=== PATIENT | female | born 1955 | race African-American/Black ===

== ENCOUNTER 2020-01-24 11:11 | Inpatient (IN) | payer OTHER ==
--- NOTE | 2020-01-24 13:53 | BHS.RME ---
Substance Use & Tx History - Substance Use History Alcohol Substance amount: 1.5 pints vodka Frequency of use: Daily Substance route: Oral Date of Last Use: 01/24/20 Opiates (Heroin) Substance amount: 2 bags heroin Frequency of use: Daily Substance route: Inhalation (ex: sniffing or snorting) Date of Last Use: 01/24/20 Physical/Psych/Mental Status - Behavior Eye Contact: Normal - Cooperativeness Cooperativeness: Cooperative - Thinking Thought Processes: Tight, Logical, Goal Directed Thought content: Future oriented - Physical Health Problems Is patient presently having any pain?: No Does patient presently have any injuries (include location): No Does patient currently have a fever: No Is patient : No CIWA Nausea/Vomitin-No Nausea/No Vomiting Muscle Tremors: 3 Anxiety: 3 (mild withdrawals because drank earlier today...) Agitation: 3 Paroxysmal Sweats: No Perspiration Orientation: 0-Oriented Tacttile Disturbances: 0-None Auditory Disturbances: 0-None Visual Disturbances: 0-None Headache: 4-Moderately Severe CIWA-Ar Total Score: 13
[2020-01-24 15:17] VITALS: BMI 15.6
--- NOTE | 2020-01-24 15:32 | HP ---
COWS - Scale Resting Pulse: 0= DC 80 or Below Sweatin=Flushed/Facial Moisture Restless Observation: 0= Sits Still Pupil Size: 0= Normal to Room Light Bone or Joint Aches: 1= Mild Discomfort Runny Nose/ Eye Tearin= Nasal Congestion GI Upset > 30mins: 0= None Tremor Observation: 2= Slight Tremor Visible Yawning Observation: 0= None Anxiety or Irritability: 2=Irritable/Anxious Goose Flesh Skin: 0=Smooth Skin COWS Score: 8 CIWA Score Nausea/Vomitin-No Nausea/No Vomiting Muscle Tremors: 3 Anxiety: 3 (mild withdrawals because drank earlier today...) Agitation: 3 Paroxysmal Sweats: No Perspiration Orientation: 0-Oriented Tacttile Disturbances: 0-None Auditory Disturbances: 0-None Visual Disturbances: 0-None Headache: 4-Moderately Severe CIWA-Ar Total Score: 13 - Admission Criteria OASAS Guidelines: Admission for Medically Managed Detox: Requires at least one of the followin. CIWA greater than 12 2. Seizures within the past 24 hours 3. Delirium tremens within the past 24 hours 4. Hallucinations within the past 24 hours 5. Acute intervention needed for co occurring medical disorder 6. Acute intervention needed for co occurring psychiatric disorder 7. Severe withdrawal that cannot be handled at a lower level of care (continued vomiting, continued diarrhea, abnormal vital signs) requiring intravenous medication and/or fluids 8. Admitting History and Physical - Admission Chief Complaint: Ms. Jamil is a 64 yo woman who presents to [facility] seeking detox admission for alcohol use disorder. She states she is "tired of being tired". History of Present Illness: Ms. Jamil is a 64 yo woman who presents to [facility] seeking detox admission for alcohol use disorder. She states she is "tired of being tired". She was here in November 2015 for detox/rehab. She went to [facility] for hypertensive emergency and then back to [facility] to complete rehab. She relapsed to drinking last week. She had been sober for 5 years prior to that time. PMH: HIV positive, HCV untreated Psur right leg Psych: depression on no meds, was on Lexapro in the past Substance use history Alcohol: 1.5 pints Vodka dialy, first use age 12y, last use 01/24/20. No hx of black outs or seizures. Heroin: 2 bags daily, IV, first use age 12, last use 3.3.20. OD 15 years ago. She is on a methadone maintenence program, last dose today 50 mg/Parul John. Nicotine: 4 cigs per day cocaine: $20/every 3 days, first use age 12y, last use yesterday SOC: lives in [place] criteria for admission: poor recovery environment, poor judgement, nicolasa risk for OD and relapse History Source: Patient Limitations to Obtaining History: No Limitations - Past Medical History Cardiovascular: Yes: HTN Gastrointestinal: Yes: Other (hep c) Renal/: Yes: UTI ...LMP: 11/23/00 ...: No Infectious Disease: Yes: HIV Psych: Yes: Addictions (polysubstance), Depression - Smoking History Smoking history: Current every day smoker Have you smoked in the past 12 months: Yes Aproximately how many cigarettes per day: 4 If you are a former smoker, when did you quit?: 2013 - Alcohol/Substance Use Hx Alcohol Use: Yes History of Substance Use: reports: Cocaine, Heroin - Social History ADL: Independent Occupation: unemployed History of Recent Travel: No Admission ROS [facility] - [facility] Allergies/Adverse Reactions: Allergies Allergy/AdvReac Type Severity Reaction Status Date / Time sulfamethoxazole Allergy Mild Itching Verified 01/24/20 15:03 [From Bactrim] trimethoprim [From Bactrim] Allergy Mild Itching Verified 01/24/20 15:03 Exam Limitations: No Limitations - Ebola screening Have you traveled outside of the country in the last 21 days: No Have you had contact with anyone from an Ebola affected area: No Have you been sick,other than usual withdrawal symptoms: No Do you have a fever: No - Review of Systems Constitutional: Unintentional Wgt. Loss (20 lbs loss past 6 mos) EENT: reports: Blurred Vision (glasses, needs to medicinal plant picker rx) Respiratory: reports: No Symptoms reported Cardiac: reports: No Symptoms Reported GI: reports: Nausea : reports: No Symptoms Reported Musculoskeletal: reports: Joint Pain Integumentary: reports: Dryness Neuro: reports: Headache Endocrine: reports: No Symptoms Reported Hematology: reports: No Symptoms Reported Psychiatric: reports: Anxious Patient History - Patient Medical History Hx Anemia: No Hx Asthma: No Hx Chronic Obstructive Pulmonary Disease (COPD): No Hx Cancer: No Hx Cardiac Disorders: No Hx Congestive Heart Failure: No Hx Hypertension: Yes (Hx of HTN but not on meds.) Hx Hypercholesterolemia: No Hx Pacemaker: No HX Cerebrovascular Accident: No Hx Seizures: No Hx Dementia: No Hx Diabetes: No Hx Gastrointestinal Disorders: No Hx Liver Disease: No Hx Genitourinary Disorders: No Hx Sexually Transmitted Disorders: No Hx Renal Disease (ESRD): No Hx Thyroid Disease: No Hx Human Immunodeficiency Virus (HIV): Yes Hx Hepatitis C: Yes Hx Depression: Yes (not in tx) Hx Suicide Attempt: No Hx Bipolar Disorder: No Hx Schizophrenia: No - Patient Surgical History Past Surgical History: Yes Hx Neurologic Surgery: No Hx Cataract Extraction: No Hx Cardiac Surgery: No Hx Lung Surgery: No Hx Breast Surgery: No Hx Breast Biopsy: No Hx Abdominal Surgery: No Hx Appendectomy: No Hx Cholecystectomy: No Hx Genitourinary Surgery: No Hx Section: No Hx Orthopedic Surgery: Yes (R knee sx for fx in 05/07) Anesthesia Reaction: No - PPD History Previous Implant?: Yes Documented Results: Negative w/o proof Implanted On Prior R Admission?: No Date: 11/28/15 Results: 0 mm - Reproductive History Last Menstrual Period: 11/23/00 Patient : No - Smoking Cessation Smoking history: Current every day smoker Have you smoked in the past 12 months: Yes Aproximately how many cigarettes per day: 4 If you are a former smoker, when did you quit?: 2013 Cigars Per Day: 0 Hx Chewing Tobacco Use: No Initiated information on smoking cessation: Yes 'Breaking Loose' booklet given: 01/24/20 - Substances abused Alcohol Substance route: Oral Frequency: Daily Amount used: 1 and 1/2 pints vodka Age of first use: 12 Date of last use: 01/24/20 Heroin Substance route: Injection Frequency: Daily Amount used: 2 bags Age of first use: 12 Date of last use: 01/24/20 Cocaine Substance route: Smoking Frequency: 1-2 times per week Amount used: $20 Age of first use: 12 Date of last use: 01/23/20 Admission Physical Exam BHS - Vital Signs Vital Signs: Vital Signs - 24 hr 01/24/20 15:09 Temperature 97.7 F Pulse Rate 60 Respiratory 18 Rate Blood Pressure 100/60 - Physical General Appearance: Yes: Appropriately Dressed, Thin HEENTM: Yes: Hearing grossly Normal, Normal Voice Neck: Yes: Within Normal Limits Breast: Yes: Breast Exam Deferred Cardiology: Yes: Regular Rate, S1, S2 Abdominal: Yes: Normal Bowel Sounds, Flat, Soft (mild upper abdominal tenderness , no rebound), Tenderness Genitourinary: Yes: Other (deferred) Back: Yes: Normal Inspection Extremities: Yes: Within Normal Limits Neurological: Yes: Alert, Normal Response Integumentary: Yes: Track Ordoñez, Other (no signs of skin infectin, left ac injection site. Multiple hyperpigmented patches on legs) - Diagnostic (1) Alcohol dependence with withdrawal, uncomplicated Current Visit: Yes Status: Acute (2) Nicotine abuse Current Visit: Yes Status: Acute (3) Cocaine dependence, uncomplicated Current Visit: No Status: Chronic (4) Hepatitis C Current Visit: No Status: Chronic Qualifiers: Viral hepatitis chronicity: chronic Hepatic coma status: without hepatic coma Qualified Code(s): B18.2 - Chronic viral hepatitis C (5) Human immunodeficiency virus infection Current Visit: No Status: Chronic (6) Opiate dependence Current Visit: Yes Status: Acute Cleared for Admission S - Detox or Rehab [facility] Level of Care: Medically Managed Breathalyzer - Breathalyzer Breathalyzer: 0.025 Urine Drug Screen - Test Device Lot number: [id number] Expiration date: 10/22/21 - Control Is test valid?: Yes - Results Drug screen NEGATIVE: No Urine drug screen results: ANDRE-Cocaine, MOP-Opiates, MTD-Methadone Inpatient Rehab Admission - Rehab Decision to Admit Inpatient rehab admission?: No
[2020-01-24] MEDS ORDERED: NICOTINE POLACRILEX 2 MG GUM BUC PRN (15:44)
[2020-01-24] MEDS ORDERED: ONDANSETRON *ODT* 4 MG TABLET SL ONE (15:44)
[2020-01-24] MEDS ORDERED: MAG HYDROX/AL HYDROX/SIMETH 30 ML UNIT-DOSE CUP PO PRN (15:44)
[2020-01-24] MEDS ORDERED: ACETAMINOPHEN 325 MG TABLET (FP) PO PRN ×2 (15:44)
[2020-01-24] MEDS ORDERED: METHOCARBAMOL 500 MG TABLET PO PRN (15:44)
[2020-01-24] MEDS ORDERED: chlordiazePOXIDE HCL 25 MG CAPSULE PO PRN (15:44)
[2020-01-24] MEDS ORDERED: BISMUTH SUBSALICYLATE 524 MG/30 ML UD PO PRN (15:44)
[2020-01-24] MEDS ORDERED: IBUPROFEN 400 MG TABLET (FP) PO PRN (15:44)
[2020-01-24] MEDS ORDERED: MAGNESIUM CITRATE 300 ML BOTTLE PO PRN (15:44)
[2020-01-24] MEDS ORDERED: MAGNESIUM HYDROX 2400MG/30ML ORAL SUSPENSION 30 ML CUP PO PRN (15:44)
[2020-01-24] MEDS ORDERED: MENTHOL/PHENOL 1 EACH UD MM PRN (15:44)
[2020-01-24] MEDS: chlordiazePOXIDE HCL 25 MG CAPSULE PO SCH ×2 (16:38→22:16)
[2020-01-24] MEDS: hydrOXYzine PAMOATE 25 MG CAPSULE (FP) PO SCH ×2 (17:06→22:15)
[2020-01-24] MEDS: THIAMINE HCL 100 MG TABLET (FP) PO SCH (22:15)
[2020-01-24] MEDS: MELATONIN 5 MG TABLETS PO SCH (22:27)
[2020-01-25] MEDS: hydrOXYzine PAMOATE 25 MG CAPSULE (FP) PO SCH ×5 (06:05→22:24)
[2020-01-25] MEDS: chlordiazePOXIDE HCL 25 MG CAPSULE PO SCH ×4 (06:06→22:24)
--- NOTE | 2020-01-25 09:09 | PN ---
S CIWA - CIWA Score Nausea/Vomitin-Mild Nausea/No Vomiting Muscle Tremors: 3 Anxiety: 4-Mod. Anxious/Guarded Agitation: 1-Slight > Activity Paroxysmal Sweats: 1-Minimal Palms Moist Orientation: 0-Oriented Tacttile Disturbances: 0-None Auditory Disturbances: 0-None Visual Disturbances: 1-Very Mild Sensitivity Headache: 1-Very Mild CIWA-Ar Total Score: 12 BHS Progress Note (SOAP) Subjective: 64 years old female admitted on 01/24/20 for alcohol withdrawal sx management treating with librium detox regiment taking methadone 50 mg po daily has been verified today has hepatitis c hiv and cigarette smoker feeling tired resting in bed tremor and restlessness ensure that first dose methadone will be administered around 10 am will be administered around 6 am begin 01/26/20 Objective: 01/25/20 09:14 Vital Signs Temperature 97.9 F 01/25/20 08:43 Pulse Rate 47 L 01/25/20 08:43 Respiratory Rate 18 01/25/20 08:43 Blood Pressure 102/64 01/25/20 08:43 O2 Sat by Pulse Oximetry (%) 01/25/20 09:14 lab pending Assessment: 01/25/20 09:14 alcohol withdrawal Plan: librium regiment
[2020-01-25] MEDS ORDERED: METHADONE HCL 10 MG TABLET PO ONE (10:00)
[2020-01-25] MEDS ORDERED: METHADONE 40 MG, METHADONE 10 MG PO ONE (10:10)
[2020-01-25] MEDS ORDERED: METHADONE HCL 10 MG TABLET ONE (10:13)
[2020-01-25] MEDS ORDERED: METHADONE HCL 40 MG DISPERSABLE TABLET ONE (10:14)
[2020-01-25] MEDS: PRENATAL VITAMINS W/ FOLIC ACID TABLET (FP) PO SCH (10:15)
[2020-01-25] MEDS: NICOTINE 7 MG/24 HOURS TOPICAL PATCH TD SCH (10:16)
[2020-01-25 10:35] LABS: HEMATOCRIT 42.2 % (32.4-45.2); HEMOGLOBIN 13.4 GM/dL (10.7-15.3); MCH 26.5 pg (25.7-33.7); MCHC 31.8 g/dl (32.0-36.0); MEAN CELL VOLUME 83.4 fl (80-96); MEAN PLT VOLUME 8.8 fl (7.5-11.1); PLATELET COUNT 149 K/MM3 (134-434); RBC 5.06 M/mm3 (3.60-5.2); RDW 15.4 % (11.6-15.6); WHITE BLOOD COUNT 2.3 K/mm3 (4.0-10.0)
[2020-01-25 10:56] LABS: ALBUMIN 2.6 g/dl (3.4-5.0); BILIRUBIN,TOTAL 0.5 mg/dL (0.2-1); BLOOD UREA NITROGEN 17.3 mg/dL (7-18); CALCIUM 9.6 mg/dL (8.5-10.1); CREATININE 0.9 mg/dL (0.55-1.3); POTASSIUM 3.6 mmol/L (3.5-5.1); TOT PROT 8.2 g/dl (6.4-8.2)
[2020-01-25] MEDS: EMTRICITABINE/TENOFOV ALAFENAM (DESCOVY) TABLET PO SCH (12:57)
[2020-01-25] MEDS: DOLUTEGRAVIR SODIUM 50 MG TABLET (NON-FORMULARY) PO SCH (12:57)
[2020-01-25] MEDS: THIAMINE HCL 100 MG TABLET (FP) PO SCH (22:25)
[2020-01-25] MEDS: MELATONIN 5 MG TABLETS PO SCH (22:25)
[2020-01-26] MEDS ORDERED: METHADONE HCL 10 MG TABLET ONE (04:27)
[2020-01-26] MEDS ORDERED: METHADONE HCL 40 MG DISPERSABLE TABLET ONE (04:27)
[2020-01-26] MEDS ORDERED: METHADONE 40 MG, METHADONE 10 MG PO SCH (06:00)
[2020-01-26] MEDS ORDERED: METHADONE HCL 10 MG TABLET PO SCH (06:00)
[2020-01-26] MEDS: chlordiazePOXIDE HCL 25 MG CAPSULE PO SCH ×2 (07:54→10:29)
[2020-01-26] MEDS: hydrOXYzine PAMOATE 25 MG CAPSULE (FP) PO SCH ×2 (07:54→10:29)
[2020-01-26] MEDS: PRENATAL VITAMINS W/ FOLIC ACID TABLET (FP) PO SCH (10:28)
[2020-01-26] MEDS: NICOTINE 7 MG/24 HOURS TOPICAL PATCH TD SCH (10:29)
[2020-01-26] MEDS: DOLUTEGRAVIR SODIUM 50 MG TABLET (NON-FORMULARY) PO SCH (10:30)
[2020-01-26] MEDS: EMTRICITABINE/TENOFOV ALAFENAM (DESCOVY) TABLET PO SCH (10:30)
[2020-01-26] MEDS ORDERED: hydrOXYzine PAMOATE 25 MG CAPSULE (FP) PO PRN (10:57)
--- NOTE | 2020-01-26 10:58 | PN ---
S CIWA - CIWA Score Nausea/Vomitin-No Nausea/No Vomiting Muscle Tremors: 2 Anxiety: 0-No Anxiety, at Ease Agitation: 0-Normal Activity Paroxysmal Sweats: 2 Orientation: 0-Oriented Tacttile Disturbances: 0-None Auditory Disturbances: 0-None Visual Disturbances: 2-Mild Sensitivity Headache: 1-Very Mild CIWA-Ar Total Score: 7 BHS Progress Note (SOAP) Subjective: 64 years old female admitted on 01/24/20 for alcohol withdrawal sx management treating with librium detox regiment received methadone 50 mg po today appears sleepy easy to aroused adjusting librium dosage to a lower range ammonia level Objective: 01/26/20 11:14 Vital Signs Temperature 98.4 F 01/26/20 08:36 Pulse Rate 67 01/26/20 08:36 Respiratory Rate 16 01/26/20 08:36 Blood Pressure 146/95 01/26/20 08:36 O2 Sat by Pulse Oximetry (%) Laboratory Last Values WBC 2.3 K/mm3 (4.0-10.0) L 01/25/20 07:30 RBC 5.06 M/mm3 (3.60-5.2) 01/25/20 07:30 Hgb 13.4 GM/dL (10.7-15.3) 01/25/20 07:30 Hct 42.2 % (32.4-45.2) D 01/25/20 07:30 MCV 83.4 fl (80-96) 01/25/20 07:30 MCH 26.5 pg (25.7-33.7) 01/25/20 07:30 MCHC 31.8 g/dl (32.0-36.0) L 01/25/20 07:30 RDW 15.4 % (11.6-15.6) 01/25/20 07:30 Plt Count 149 K/MM3 (134-434) D 01/25/20 07:30 MPV 8.8 fl (7.5-11.1) 01/25/20 07:30 Sodium 143 mmol/L (136-145) 01/25/20 07:30 Potassium 3.6 mmol/L (3.5-5.1) 01/25/20 07:30 Chloride 112 mmol/L (98-107) H 01/25/20 07:30 Carbon Dioxide 28 mmol/L (21-32) 01/25/20 07:30 Anion Gap 3 MMOL/L (8-16) L 01/25/20 07:30 BUN 17.3 mg/dL (7-18) 01/25/20 07:30 Creatinine 0.9 mg/dL (0.55-1.3) 01/25/20 07:30 Est GFR (CKD-EPI)AfAm 77.77 01/25/20 07:30 Est GFR (CKD-EPI)NonAf 67.10 01/25/20 07:30 Random Glucose 113 mg/dL (74-106) H 01/25/20 07:30 Calcium 9.6 mg/dL (8.5-10.1) 01/25/20 07:30 Total Bilirubin 0.5 mg/dL (0.2-1) 01/25/20 07:30 AST 35 U/L (15-37) 01/25/20 07:30 ALT 20 U/L (13-61) 01/25/20 07:30 Alkaline Phosphatase 104 U/L (45-117) 01/25/20 07:30 Total Protein 8.2 g/dl (6.4-8.2) 01/25/20 07:30 Albumin 2.6 g/dl (3.4-5.0) L 01/25/20 07:30 RPR Titer Nonreactive (NONREACTIVE) 01/25/20 07:30 lab noted long history of hiv treated with HRV low wbc Assessment: 01/26/20 11:15 alcohol withdrawal Plan: librium regiment
[2020-01-26] MEDS ORDERED: METHADONE HCL 40 MG DISPERSABLE TABLET PO SCH (11:50)
[2020-01-26] MEDS: chlordiazePOXIDE HCL 10 MG CAPSULE PO SCH ×3 (12:59→23:35)
[2020-01-26] MEDS ORDERED: METHADONE 40 MG, METHADONE 5 MG PO ONE (13:30)
[2020-01-26] MEDS: THIAMINE HCL 100 MG TABLET (FP) PO SCH (23:27)
[2020-01-26] MEDS: MELATONIN 5 MG TABLETS PO SCH (23:35)
[2020-01-27] MEDS ORDERED: chlordiazePOXIDE HCL 10 MG CAPSULE PO PRN
[2020-01-27] MEDS ORDERED: METHADONE 40 MG, METHADONE 5 MG PO SCH (06:00)
[2020-01-27] MEDS: chlordiazePOXIDE HCL 10 MG CAPSULE PO SCH ×4 (06:05→23:00)
[2020-01-27] MEDS: METHADONE HCL 40 MG DISPERSABLE TABLET PO SCH (09:56)
[2020-01-27] MEDS: DOLUTEGRAVIR SODIUM 50 MG TABLET (NON-FORMULARY) PO SCH (09:57)
[2020-01-27] MEDS: EMTRICITABINE/TENOFOV ALAFENAM (DESCOVY) TABLET PO SCH (09:57)
[2020-01-27] MEDS: PRENATAL VITAMINS W/ FOLIC ACID TABLET (FP) PO SCH (09:57)
[2020-01-27] MEDS: NICOTINE 7 MG/24 HOURS TOPICAL PATCH TD SCH (09:58)
--- NOTE | 2020-01-27 14:16 | PN ---
BHS CIWA - CIWA Score Nausea/Vomitin-Mild Nausea/No Vomiting Muscle Tremors: 2 Anxiety: 2 Agitation: 2 Paroxysmal Sweats: No Perspiration Orientation: 0-Oriented Tacttile Disturbances: 1-Very Mild Itch/Numbness Auditory Disturbances: 0-None Visual Disturbances: 0-None Headache: 1-Very Mild CIWA-Ar Total Score: 9 BHS Progress Note (SOAP) Subjective: alert,oriented x 3 irritable,anxious,interrupted sleep,feel weak,pain i n the body methadone reduced to 40 mgs po daily Objective: 01/27/20 14:16 Vital Signs Temperature 98.1 F 01/27/20 08:41 Pulse Rate 78 01/27/20 08:41 Respiratory Rate 16 01/27/20 08:41 Blood Pressure 104/71 01/27/20 08:41 O2 Sat by Pulse Oximetry (%) Laboratory Results - last 24 hr 01/27/20 08:50 Ammonia 46.10 H Assessment: 01/27/20 14:17 withdrawal symptom ammonia level is 46.10 will give lactulose 20 grams po bid Plan: continue detox librium regimen,lactulose 20 grams po bid
[2020-01-27] MEDS ORDERED: LACTULOSE 20 GM/30 ML UDC (FOR ORAL USE ONLY) PO ONE (14:21)
[2020-01-27] MEDS: THIAMINE HCL 100 MG TABLET (FP) PO SCH (22:52)
[2020-01-27] MEDS: LACTULOSE 20 GM/30 ML UDC (FOR ORAL USE ONLY) PO SCH (22:52)
[2020-01-27] MEDS: MELATONIN 5 MG TABLETS PO SCH (23:00)
[2020-01-28] MEDS: METHADONE HCL 40 MG DISPERSABLE TABLET PO SCH (06:18)
[2020-01-28] MEDS: chlordiazePOXIDE HCL 10 MG CAPSULE PO SCH ×2 (06:18→19:05)
[2020-01-28] MEDS: LACTULOSE 20 GM/30 ML UDC (FOR ORAL USE ONLY) PO SCH ×2 (11:06→23:47)
[2020-01-28] MEDS: NICOTINE 7 MG/24 HOURS TOPICAL PATCH TD SCH (11:06)
[2020-01-28] MEDS: PRENATAL VITAMINS W/ FOLIC ACID TABLET (FP) PO SCH (11:06)
[2020-01-28] MEDS: DOLUTEGRAVIR SODIUM 50 MG TABLET (NON-FORMULARY) PO SCH (11:31)
[2020-01-28] MEDS: EMTRICITABINE/TENOFOV ALAFENAM (DESCOVY) TABLET PO SCH (11:31)
--- NOTE | 2020-01-28 12:35 | PN ---
S CIWA - CIWA Score Nausea/Vomitin-No Nausea/No Vomiting Muscle Tremors: None Anxiety: 2 Agitation: 0-Normal Activity Paroxysmal Sweats: 2 Orientation: 0-Oriented Tacttile Disturbances: 0-None Auditory Disturbances: 0-None Visual Disturbances: 0-None Headache: 0-None Present CIWA-Ar Total Score: 4 BHS Progress Note (SOAP) Subjective: c/o mild withdrawal symptoms. Objective: 01/28/20 12:34 Vital Signs 01/28/20 01/28/20 06:36 08:57 Temperature 98.4 F 97.6 F Pulse Rate 66 65 Respiratory 16 17 Rate Blood Pressure 117/75 90/65 Assessment: 01/28/20 12:37 AOX3, in no acute respiratory distress. Full ROM, ambulating in the unit. Mild Withdrawal symptoms. For d/c tomorrow. Plan: continue detox. D/C in AM.
[2020-01-28] MEDS: THIAMINE HCL 100 MG TABLET (FP) PO SCH (23:48)
[2020-01-28] MEDS: MELATONIN 5 MG TABLETS PO SCH (23:48)
--- NOTE | 2020-01-29 03:48 | PN ---
[facility] Progress Note Note: Vital Signs 01/29/20 03:40 Temperature 98.2 F Pulse Rate 61 Respiratory 18 Rate Blood Pressure 125/84 ASKED TO SEE CLIENT FOR REPORTED FALL. PER CLIENT SHE REPORTS LOSING HER BALANCE WHILE AMBULATING W/O HER CANE IN HER ROOM AND FALLING ON HER LEFT SIDE. DENIES HITTING HER HEAD, INJURY, LOC, DIZZINESS, . COMPLAINT OF CHRONIC OA PAIN TO JOINTS. O- SEEN LYING IN BED COMFORTABLY A/O X3 NAD NCAT. PERRLA, EOMI CV- RRR EXTREMITIES- FROM W/O LIMITATIONS, CLIENT OOB AMBULATING WITH CANE W/O DIFFICULTY SKIN- INTACT, NO VISIBLE INJURIES NOTED A- S/P UNWITNESSED FALL P- FALL PROTOCOL [address] DESPITE ENCOURAGEMENT AND RISKS DISCUSSED. CLIENT ACCEPTS RISK AND SIGNED REFUSAL OF TXMENT FORM. CONTINUE TO MAINTAIN SAFETY AND MONITOR CLINICALLY. TYLENOL/MOTRIN FOR CHRONIC PAIN
[2020-01-29] MEDS ORDERED: chlordiazePOXIDE HCL 10 MG CAPSULE PO ONE (05:00)
[2020-01-29] MEDS: METHADONE HCL 40 MG DISPERSABLE TABLET PO SCH (06:09)
[2020-01-29] MEDS: LACTULOSE 20 GM/30 ML UDC (FOR ORAL USE ONLY) PO SCH ×2 (11:47→22:23)
[2020-01-29] MEDS: DOLUTEGRAVIR SODIUM 50 MG TABLET (NON-FORMULARY) PO SCH (11:47)
[2020-01-29] MEDS: NICOTINE 7 MG/24 HOURS TOPICAL PATCH TD SCH (11:47)
[2020-01-29] MEDS: EMTRICITABINE/TENOFOV ALAFENAM (DESCOVY) TABLET PO SCH (11:47)
[2020-01-29] MEDS: PRENATAL VITAMINS W/ FOLIC ACID TABLET (FP) PO SCH (11:47)
--- NOTE | 2020-01-29 11:56 | PN ---
[facility] CIWA - CIWA Score Nausea/Vomitin-No Nausea/No Vomiting Muscle Tremors: 1-None Visible, but [place] Anxiety: 0-No Anxiety, at Ease Agitation: 0-Normal Activity Paroxysmal Sweats: 1-Minimal Palms Moist Orientation: 0-Oriented Tacttile Disturbances: 0-None Auditory Disturbances: 0-None Visual Disturbances: 0-None Headache: 0-None Present CIWA-Ar Total Score: 2 S Progress Note (SOAP) Subjective: 64 years old female admitted on 01/24/20 for alcohol withdrawal sx management treating with librum detox regiment patient fell around 0330 am today refused ER evaluation denies pain no visible injury noted observed eating breakfast with fingers positive coordination hand to mouth hold methadone tomorrow encourage lactulose administer as directed scheduled to be discharged today with transportation arranged due to fall hours ago continue observation for safe discharge hold methadone Objective: 01/29/20 12:05 Vital Signs Temperature 96.8 F L 01/29/20 11:40 Pulse Rate 55 L 01/29/20 11:40 Respiratory Rate 18 01/29/20 11:40 Blood Pressure 94/65 01/29/20 11:40 O2 Sat by Pulse Oximetry (%) Laboratory Last Values WBC 2.3 K/mm3 (4.0-10.0) L 01/25/20 07:30 RBC 5.06 M/mm3 (3.60-5.2) 01/25/20 07:30 Hgb 13.4 GM/dL (10.7-15.3) 01/25/20 07:30 Hct 42.2 % (32.4-45.2) D 01/25/20 07:30 MCV 83.4 fl (80-96) 01/25/20 07:30 MCH 26.5 pg (25.7-33.7) 01/25/20 07:30 MCHC 31.8 g/dl (32.0-36.0) L 01/25/20 07:30 RDW 15.4 % (11.6-15.6) 01/25/20 07:30 Plt Count 149 K/MM3 (134-434) D 01/25/20 07:30 MPV 8.8 fl (7.5-11.1) 01/25/20 07:30 Sodium 143 mmol/L (136-145) 01/25/20 07:30 Potassium 3.6 mmol/L (3.5-5.1) 01/25/20 07:30 Chloride 112 mmol/L (98-107) H 01/25/20 07:30 Carbon Dioxide 28 mmol/L (21-32) 01/25/20 07:30 Anion Gap 3 MMOL/L (8-16) L 01/25/20 07:30 BUN 17.3 mg/dL (7-18) 01/25/20 07:30 Creatinine 0.9 mg/dL (0.55-1.3) 01/25/20 07:30 Est GFR (CKD-EPI)AfAm 77.77 01/25/20 07:30 Est GFR (CKD-EPI)NonAf 67.10 01/25/20 07:30 Random Glucose 113 mg/dL (74-106) H 01/25/20 07:30 Calcium 9.6 mg/dL (8.5-10.1) 01/25/20 07:30 Total Bilirubin 0.5 mg/dL (0.2-1) 01/25/20 07:30 AST 35 U/L (15-37) 01/25/20 07:30 ALT 20 U/L (13-61) 01/25/20 07:30 Alkaline Phosphatase 104 U/L (45-117) 01/25/20 07:30 Ammonia 46.10 umol/L (11-32) H 01/27/20 08:50 Total Protein 8.2 g/dl (6.4-8.2) 01/25/20 07:30 Albumin 2.6 g/dl (3.4-5.0) L 01/25/20 07:30 RPR Titer Nonreactive (NONREACTIVE) 01/25/20 07:30 lab noted low wbc due to HIV treated with ARV ammonia elevation encourage lactulose Assessment: alcohol withdrawal fall neurological checking protocol Plan: librium regiment continue observation
[2020-01-29] MEDS: MELATONIN 5 MG TABLETS PO SCH (22:22)
[2020-01-29] MEDS: THIAMINE HCL 100 MG TABLET (FP) PO SCH (22:22)
[2020-01-30] MEDS: PRENATAL VITAMINS W/ FOLIC ACID TABLET (FP) PO SCH (09:55)
[2020-01-30] MEDS: EMTRICITABINE/TENOFOV ALAFENAM (DESCOVY) TABLET PO SCH (09:55)
[2020-01-30] MEDS: DOLUTEGRAVIR SODIUM 50 MG TABLET (NON-FORMULARY) PO SCH (09:56)
[2020-01-30] MEDS: NICOTINE 7 MG/24 HOURS TOPICAL PATCH TD SCH (09:56)
[2020-01-30] MEDS: LACTULOSE 20 GM/30 ML UDC (FOR ORAL USE ONLY) PO SCH (09:56)
[2020-01-30 09:58] VITALS: BP 87/62; PULSE 81; TEMP 97.4
--- NOTE | 2020-01-30 10:32 | DS ---
[facility] Detox Discharge Summary Admission Date: 01/24/20 Discharge Date: 01/30/20 - History Present History: Alcohol Dependence Additional Comments: 64 years old female admitted on 01/24/20 for alcohol withdrawal sx management treating with librium detox regiment Ms Jamil has completed the librium regiment and is tolerated well no participation in the groups and meetings while in detox withheld multiple librium dosage with possibility of methadone due to sleepy with moderate touch for arousal lowered methadone dosage as per maintenance program provided one fall episode during the detox stay one extra day for observation alert oriented x 3 no acute distress ambulating with cane slow steady gait respiratory clear lungs bilaterally on auscultation abdomen soft no rebound tenderness skin warm and dry Pertinent Past History: time for discharge 52 minutes as per counselor that transportation from detox facility to half-way and follow up with out patient program - Physical Exam Results Vital Signs: Vital Signs Temperature 97.4 F L 01/30/20 09:11 Pulse Rate 81 01/30/20 09:11 Respiratory Rate 18 01/30/20 09:11 Blood Pressure 87/62 L 01/30/20 09:11 O2 Sat by Pulse Oximetry (%) Pertinent Admission Physical Exam Findings: alcohol withdrawal Laboratory Last Values WBC 2.3 K/mm3 (4.0-10.0) L 01/25/20 07:30 RBC 5.06 M/mm3 (3.60-5.2) 01/25/20 07:30 Hgb 13.4 GM/dL (10.7-15.3) 01/25/20 07:30 Hct 42.2 % (32.4-45.2) D 01/25/20 07:30 MCV 83.4 fl (80-96) 01/25/20 07:30 MCH 26.5 pg (25.7-33.7) 01/25/20 07:30 MCHC 31.8 g/dl (32.0-36.0) L 01/25/20 07:30 RDW 15.4 % (11.6-15.6) 01/25/20 07:30 Plt Count 149 K/MM3 (134-434) D 01/25/20 07:30 MPV 8.8 fl (7.5-11.1) 01/25/20 07:30 Sodium 143 mmol/L (136-145) 01/25/20 07:30 Potassium 3.6 mmol/L (3.5-5.1) 01/25/20 07:30 Chloride 112 mmol/L (98-107) H 01/25/20 07:30 Carbon Dioxide 28 mmol/L (21-32) 01/25/20 07:30 Anion Gap 3 MMOL/L (8-16) L 01/25/20 07:30 BUN 17.3 mg/dL (7-18) 01/25/20 07:30 Creatinine 0.9 mg/dL (0.55-1.3) 01/25/20 07:30 Est GFR (CKD-EPI)AfAm 77.77 01/25/20 07:30 Est GFR (CKD-EPI)NonAf 67.10 01/25/20 07:30 Random Glucose 113 mg/dL (74-106) H 01/25/20 07:30 Calcium 9.6 mg/dL (8.5-10.1) 01/25/20 07:30 Total Bilirubin 0.5 mg/dL (0.2-1) 01/25/20 07:30 AST 35 U/L (15-37) 01/25/20 07:30 ALT 20 U/L (13-61) 01/25/20 07:30 Alkaline Phosphatase 104 U/L (45-117) 01/25/20 07:30 Ammonia 46.10 umol/L (11-32) H 01/27/20 08:50 Total Protein 8.2 g/dl (6.4-8.2) 01/25/20 07:30 Albumin 2.6 g/dl (3.4-5.0) L 01/25/20 07:30 RPR Titer Nonreactive (NONREACTIVE) 01/25/20 07:30 Vital Signs Temperature 97.4 F L 01/30/20 09:11 Pulse Rate 81 01/30/20 09:11 Respiratory Rate 18 01/30/20 09:11 Blood Pressure 87/62 L 01/30/20 09:11 O2 Sat by Pulse Oximetry (%) lab noted Ms Jamil will return to her living place follow up with infectious disease specialist and methadone maintenance program for medical mental issues - Treatment Hospital Course: Detox Protocol Followed, Detoxed Safely, Responded well, Discharged Condition Good, Rehab Referral Accepted Patient has Accepted a Rehab Referral to: return to out patient program - Medication Discharge Medications: Ambulatory Orders Dolutegravir Sodium [Tivicay] 50 mg PO DAILY 01/24/20 Emtricitabine/Tenofov Alafenam [Descovy 200-25 mg Tablet (Nf)] 1 each PO DAILY 01/24/20 - Diagnosis (1) Substance induced mood disorder Current Visit: Yes Status: Suspected (2) Ambulates with cane Current Visit: Yes Status: Chronic (3) Alcohol dependence with withdrawal, uncomplicated Current Visit: Yes Status: Acute (4) Nicotine abuse Current Visit: Yes Status: Acute (5) HTN (hypertension) Current Visit: Yes Status: Chronic Qualifiers: Hypertension type: essential hypertension Qualified Code(s): I10 - Essential (primary) hypertension (6) Hepatitis C Current Visit: Yes Status: Chronic Qualifiers: Viral hepatitis chronicity: chronic Hepatic coma status: without hepatic coma Qualified Code(s): B18.2 - Chronic viral hepatitis C (7) Human immunodeficiency virus infection Current Visit: Yes Status: Chronic Qualifiers: HIV symptom status: asymptomatic Qualified Code(s): Z21 - Asymptomatic human immunodeficiency virus [HIV] infection status (8) Methadone maintenance therapy patient Current Visit: Yes Status: Chronic (9) Weight decreased Current Visit: Yes Status: Chronic - AMA Did Patient Leave Against Medical Advice: No CIWA Score - CIWA Score Nausea/Vomitin-No Nausea/No Vomiting Muscle Tremors: 1-None Visible, but [place] Anxiety: 0-No Anxiety, at Ease Agitation: 0-Normal Activity Paroxysmal Sweats: No Perspiration Orientation: 0-Oriented Tacttile Disturbances: 0-None Auditory Disturbances: 0-None Visual Disturbances: 0-None Headache: 0-None Present CIWA-Ar Total Score: 1
== END 2020-01-30 10:10 | disposition home or self-care (01) | DRG 897 ==
LOC: YASAS 11:11 → Y3N 15:28
PROVIDERS: ADMIT Allergy & Immunology; ATTEND Allergy & Immunology
PROC: HZ2ZZZZ Detoxification Services for Substance Abuse Treatment (ICD-10-PCS; principal; 2020-01-24)
DX: F10.230 Alcohol dependence with withdrawal, uncomplicated (principal); F11.20 Opioid dependence, uncomplicated; F14.20 Cocaine dependence, uncomplicated; Z68.1 Body mass index [BMI] 19.9 or less, adult; F17.210 Nicotine dependence, cigarettes, uncomplicated; F19.24 Other psychoactive substance dependence with psychoactive substance-induced mood disorder; Z21 Asymptomatic human immunodeficiency virus [HIV] infection status; I10 Essential (primary) hypertension; M19.90 Unspecified osteoarthritis, unspecified site; B18.2 Chronic viral hepatitis C; R63.4 Abnormal weight loss; Z99.89 Dependence on other enabling machines and devices; Z88.2 Allergy status to sulfonamides
CPT/HCPCS: 36415; 80053; 82140; 85027; 86593; Q0162

== ENCOUNTER 2021-06-27 10:57 | Inpatient (IN) | payer OTHER ==
[2021-06-27 13:02] VITALS: BMI 15.6
[2021-06-27] MEDS ORDERED: MAGNESIUM CITRATE 300 ML BOTTLE PO PRN (14:28)
[2021-06-27] MEDS ORDERED: MAGNESIUM HYDROX 2400MG/30ML ORAL SUSPENSION 30 ML CUP PO PRN (14:28)
[2021-06-27] MEDS ORDERED: IBUPROFEN 400 MG TABLET (FP) PO PRN (14:28)
[2021-06-27] MEDS ORDERED: ACETAMINOPHEN 325 MG TABLET (FP) PO PRN ×2 (14:28)
[2021-06-27] MEDS ORDERED: METHOCARBAMOL 500 MG TABLET PO PRN (14:28)
[2021-06-27] MEDS ORDERED: ONDANSETRON *ODT* 4 MG TABLET SL PRN (14:28)
[2021-06-27] MEDS ORDERED: LORazepam 1 MG TABLET PO PRN (14:28)
[2021-06-27] MEDS ORDERED: MAG HYDROX/AL HYDROX/SIMETH 30 ML UNIT-DOSE CUP PO PRN (14:28)
[2021-06-27] MEDS ORDERED: BISMUTH SUBSALICYLATE 262 MG/15 ML BTL PO PRN (14:28)
[2021-06-27] MEDS ORDERED: MENTHOL/PHENOL 1 EACH UD MM PRN (14:28)
[2021-06-27] MEDS ORDERED: methaDONE HCL 40 MG DISPERSABLE TABLET PO SCH (14:45)
[2021-06-27] MEDS ORDERED: hydrOXYzine PAMOATE 25 MG CAPSULE (FP) PO PRN (15:09)
[2021-06-27] MEDS ORDERED: methaDONE HCL 10 MG TABLET ONE (15:57)
[2021-06-27] MEDS ORDERED: methaDONE HCL 40 MG DISPERSABLE TABLET ONE (15:57)
[2021-06-27] MEDS: PRENATAL VITAMINS W/ FOLIC ACID TABLET (FP) PO SCH (16:01)
[2021-06-27] MEDS: methaDONE 40 MG, methaDONE 20 MG PO SCH (16:02)
[2021-06-27] MEDS: BICTEGRAV/EMTRICIT/TENOFOV (BIKTARVY) 50-200-25 MG TABLET PO SCH (16:02)
[2021-06-27 16:28] LABS: CALCIUM 9.9 mg/dL (8.5-10.1)
[2021-06-27 16:29] LABS: BLOOD UREA NITROGEN 20.9 mg/dL (7-18)
[2021-06-27 16:33] LABS: BILIRUBIN,TOTAL 0.5 mg/dL (0.2-1)
[2021-06-27 16:34] LABS: TOT PROT 9.4 g/dl (6.4-8.2)
[2021-06-27 16:37] LABS: HEMATOCRIT 44.4 % (32.4-45.2); HEMOGLOBIN 14.6 GM/dL (10.7-15.3); MCH 27.8 pg (25.7-33.7); MCHC 32.9 g/dl (32.0-36.0); MEAN CELL VOLUME 84.5 fl (80-96); MEAN PLT VOLUME 8.5 fl (7.5-11.1); PLATELET COUNT 155 10^3/uL (134-434); RBC 5.26 M/mm3 (3.60-5.2); RDW 14.5 % (11.6-15.6); WHITE BLOOD COUNT 3.9 K/mm3 (4.0-10.0)
[2021-06-27] MEDS ORDERED: hydrOXYzine PAMOATE 25 MG CAPSULE (FP) PO SCH (18:00)
[2021-06-27] MEDS: LORazepam 1 MG TABLET PO SCH ×2 (18:20→23:51)
[2021-06-27] MEDS: AMOX TR/POT CLAV 875MG/125MG TABLETS (FP) PO SCH (18:55)
[2021-06-27] MEDS: MELATONIN 5 MG TABLETS PO SCH (23:51)
[2021-06-27] MEDS: THIAMINE HCL 100 MG TABLET (FP) PO SCH (23:52)
[2021-06-28] MEDS: LORazepam 1 MG TABLET PO SCH ×4 (07:04→22:32)
[2021-06-28] MEDS ORDERED: methaDONE HCL 10 MG TABLET ONE ×2 (09:31→13:51)
[2021-06-28] MEDS ORDERED: methaDONE HCL 40 MG DISPERSABLE TABLET ONE ×2 (09:32→13:51)
[2021-06-28] MEDS: BICTEGRAV/EMTRICIT/TENOFOV (BIKTARVY) 50-200-25 MG TABLET PO SCH (11:19)
[2021-06-28] MEDS: AMOX TR/POT CLAV 875MG/125MG TABLETS (FP) PO SCH ×2 (11:19→17:35)
[2021-06-28] MEDS: methaDONE 40 MG, methaDONE 20 MG PO SCH ×2 (11:19→13:58)
[2021-06-28] MEDS: PRENATAL VITAMINS W/ FOLIC ACID TABLET (FP) PO SCH (11:20)
[2021-06-28] MEDS: THIAMINE HCL 100 MG TABLET (FP) PO SCH (22:32)
[2021-06-28] MEDS: MELATONIN 5 MG TABLETS PO SCH (22:33)
[2021-06-29] MEDS: LORazepam 1 MG TABLET PO SCH ×4 (05:54→22:45)
[2021-06-29] MEDS: AMOX TR/POT CLAV 875MG/125MG TABLETS (FP) PO SCH ×2 (07:53→18:14)
[2021-06-29] MEDS: BICTEGRAV/EMTRICIT/TENOFOV (BIKTARVY) 50-200-25 MG TABLET PO SCH (07:54)
[2021-06-29] MEDS ORDERED: methaDONE HCL 10 MG TABLET ONE (09:33)
[2021-06-29] MEDS ORDERED: methaDONE HCL 40 MG DISPERSABLE TABLET ONE (09:33)
[2021-06-29] MEDS: PRENATAL VITAMINS W/ FOLIC ACID TABLET (FP) PO SCH (10:43)
[2021-06-29] MEDS: methaDONE 40 MG, methaDONE 20 MG PO SCH (10:43)
[2021-06-29] MEDS: THIAMINE HCL 100 MG TABLET (FP) PO SCH (22:45)
[2021-06-29] MEDS: MELATONIN 5 MG TABLETS PO SCH (22:45)
[2021-06-30] MEDS ORDERED: LORazepam 0.5 MG TABLET PO PRN
[2021-06-30] MEDS: LORazepam 0.5 MG TABLET PO SCH ×4 (05:50→22:18)
[2021-06-30] MEDS: AMOX TR/POT CLAV 875MG/125MG TABLETS (FP) PO SCH ×2 (07:32→17:45)
[2021-06-30] MEDS: BICTEGRAV/EMTRICIT/TENOFOV (BIKTARVY) 50-200-25 MG TABLET PO SCH (07:35)
[2021-06-30] MEDS ORDERED: methaDONE HCL 10 MG TABLET ONE (09:33)
[2021-06-30] MEDS ORDERED: methaDONE HCL 40 MG DISPERSABLE TABLET ONE (09:34)
[2021-06-30] MEDS: PRENATAL VITAMINS W/ FOLIC ACID TABLET (FP) PO SCH (11:12)
[2021-06-30] MEDS: methaDONE 40 MG, methaDONE 20 MG PO SCH (11:12)
[2021-06-30] MEDS: MELATONIN 5 MG TABLETS PO SCH (22:18)
[2021-06-30] MEDS: THIAMINE HCL 100 MG TABLET (FP) PO SCH (22:18)
[2021-07-01] MEDS ORDERED: LORazepam 0.5 MG TABLET PO ONE (05:00)
[2021-07-01 06:25] VITALS: PULSE 55
[2021-07-01] MEDS: BICTEGRAV/EMTRICIT/TENOFOV (BIKTARVY) 50-200-25 MG TABLET PO SCH (07:00)
[2021-07-01] MEDS: AMOX TR/POT CLAV 875MG/125MG TABLETS (FP) PO SCH (07:00)
[2021-07-01] MEDS ORDERED: methaDONE HCL 40 MG DISPERSABLE TABLET ONE (08:43)
[2021-07-01] MEDS ORDERED: methaDONE HCL 10 MG TABLET ONE (08:43)
[2021-07-01] MEDS: methaDONE 40 MG, methaDONE 20 MG PO SCH (10:19)
[2021-07-01] MEDS: PRENATAL VITAMINS W/ FOLIC ACID TABLET (FP) PO SCH (10:19)
[2021-07-01 12:14] VITALS: BP 121/83; TEMP 97.7
== END 2021-07-01 12:17 | disposition other institution (70) | DRG 897 ==
LOC: YASAS 10:57 → Y3N 13:41 → UNDOADMIN 13:41
PROVIDERS: ADMIT Allergy & Immunology; ATTEND Allergy & Immunology
PROC: HZ2ZZZZ Detoxification Services for Substance Abuse Treatment (ICD-10-PCS; principal; 2021-06-27)
DX: F10.230 Alcohol dependence with withdrawal, uncomplicated (principal); F11.20 Opioid dependence, uncomplicated; F14.20 Cocaine dependence, uncomplicated; Z68.1 Body mass index [BMI] 19.9 or less, adult; F17.210 Nicotine dependence, cigarettes, uncomplicated; F19.24 Other psychoactive substance dependence with psychoactive substance-induced mood disorder; I10 Essential (primary) hypertension; B18.2 Chronic viral hepatitis C; R79.89 Other specified abnormal findings of blood chemistry; R63.4 Abnormal weight loss; M19.90 Unspecified osteoarthritis, unspecified site; Z21 Asymptomatic human immunodeficiency virus [HIV] infection status; R01.1 Cardiac murmur, unspecified; R26.2 Difficulty in walking, not elsewhere classified; Z99.89 Dependence on other enabling machines and devices; Z88.2 Allergy status to sulfonamides; Z88.1 Allergy status to other antibiotic agents
CPT/HCPCS: 36415; 80053; 84520; 85027; 86780; C9803; U0003; U0005

== ENCOUNTER 2021-07-01 12:55 | Inpatient (IN) | payer OTHER ==
[2021-07-01] MEDS ORDERED: ACETAMINOPHEN 325 MG TABLET (FP) PO PRN (14:47)
[2021-07-01] MEDS ORDERED: LOPERAMIDE HCL 2 MG CAPSULE PO PRN (14:47)
[2021-07-01] MEDS ORDERED: hydrOXYzine PAMOATE 25 MG CAPSULE (FP) PO PRN (14:47)
[2021-07-01] MEDS ORDERED: IBUPROFEN 400 MG TABLET (FP) PO PRN (14:47)
[2021-07-01] MEDS ORDERED: MAG HYDROX/AL HYDROX/SIMETH 30 ML UNIT-DOSE CUP PO PRN (14:47)
[2021-07-01] MEDS ORDERED: guaiFENesin 200 MG/10 ML 10 ML UNIT-DOSE CUPS PO PRN (14:47)
[2021-07-01] MEDS ORDERED: MAGNESIUM CITRATE 300 ML BOTTLE PO PRN (14:47)
[2021-07-01] MEDS ORDERED: MENTHOL/PHENOL 1 EACH UD MM PRN (14:47)
[2021-07-01] MEDS ORDERED: P-EPHED 60MG/TRIPROLIDI 2.5MG TABLET PO PRN (14:47)
[2021-07-01] MEDS ORDERED: MAGNESIUM HYDROX 2400MG/30ML ORAL SUSPENSION 30 ML CUP PO PRN (14:47)
[2021-07-01] MEDS: MELATONIN 5 MG TABLETS PO SCH (22:03)
[2021-07-01] MEDS: THIAMINE HCL 100 MG TABLET (FP) PO SCH (22:03)
[2021-07-02] MEDS ORDERED: methaDONE HCL 40 MG DISPERSABLE TABLET PO SCH (06:00)
[2021-07-02] MEDS ORDERED: methaDONE HCL 40 MG DISPERSABLE TABLET ONE (06:05)
[2021-07-02] MEDS ORDERED: methaDONE HCL 10 MG TABLET ONE (06:06)
[2021-07-02] MEDS: methaDONE 40 MG, methaDONE 20 MG PO SCH (06:30)
[2021-07-02] MEDS: PRENATAL VITAMINS W/ FOLIC ACID TABLET (FP) PO SCH (10:38)
[2021-07-02] MEDS: BICTEGRAV/EMTRICIT/TENOFOV (BIKTARVY) 50-200-25 MG TABLET PO SCH (10:39)
[2021-07-02] MEDS: MELATONIN 5 MG TABLETS PO SCH (21:41)
[2021-07-02] MEDS: THIAMINE HCL 100 MG TABLET (FP) PO SCH (21:41)
[2021-07-03] MEDS ORDERED: methaDONE HCL 40 MG DISPERSABLE TABLET ONE (04:11)
[2021-07-03] MEDS ORDERED: methaDONE HCL 10 MG TABLET ONE (04:11)
[2021-07-03] MEDS: methaDONE 40 MG, methaDONE 20 MG PO SCH (06:47)
[2021-07-03] MEDS ORDERED: PT OWN MED DRAWER 7, Y5N ONE (09:18)
[2021-07-03] MEDS: PRENATAL VITAMINS W/ FOLIC ACID TABLET (FP) PO SCH (10:37)
[2021-07-03] MEDS: BICTEGRAV/EMTRICIT/TENOFOV (BIKTARVY) 50-200-25 MG TABLET PO SCH (10:38)
[2021-07-03] MEDS: MELATONIN 5 MG TABLETS PO SCH (22:04)
[2021-07-03] MEDS: THIAMINE HCL 100 MG TABLET (FP) PO SCH (22:04)
[2021-07-04] MEDS ORDERED: methaDONE HCL 40 MG DISPERSABLE TABLET ONE ×2 (03:40→09:04)
[2021-07-04] MEDS ORDERED: methaDONE HCL 10 MG TABLET ONE ×2 (03:40→09:04)
[2021-07-04] MEDS: methaDONE 40 MG, methaDONE 20 MG PO SCH ×2 (06:42→09:49)
[2021-07-04] MEDS: BICTEGRAV/EMTRICIT/TENOFOV (BIKTARVY) 50-200-25 MG TABLET PO SCH (09:49)
[2021-07-04] MEDS: PRENATAL VITAMINS W/ FOLIC ACID TABLET (FP) PO SCH (09:49)
[2021-07-04] MEDS: BACITRACIN 0.9 GM PACKET TP SCH ×2 (12:04→23:07)
[2021-07-04] MEDS: LIDOCAINE 5% TOPICAL PATCH TP SCH (12:04)
[2021-07-04] MEDS: MELATONIN 5 MG TABLETS PO SCH (23:07)
[2021-07-04] MEDS: LIDOCAINE PATCH REMOVAL MC SCH (23:07)
[2021-07-04] MEDS: THIAMINE HCL 100 MG TABLET (FP) PO SCH (23:07)
[2021-07-05] MEDS ORDERED: methaDONE HCL 40 MG DISPERSABLE TABLET ONE (08:41)
[2021-07-05] MEDS ORDERED: methaDONE HCL 10 MG TABLET ONE (08:42)
[2021-07-05] MEDS: PRENATAL VITAMINS W/ FOLIC ACID TABLET (FP) PO SCH (10:05)
[2021-07-05] MEDS: BACITRACIN 0.9 GM PACKET TP SCH ×2 (10:05→21:06)
[2021-07-05] MEDS: methaDONE 40 MG, methaDONE 20 MG PO SCH (10:05)
[2021-07-05] MEDS: BICTEGRAV/EMTRICIT/TENOFOV (BIKTARVY) 50-200-25 MG TABLET PO SCH (10:06)
[2021-07-05] MEDS: LIDOCAINE 5% TOPICAL PATCH TP SCH (10:06)
[2021-07-05] MEDS: LIDOCAINE PATCH REMOVAL MC SCH (21:06)
[2021-07-05] MEDS: THIAMINE HCL 100 MG TABLET (FP) PO SCH (21:06)
[2021-07-05] MEDS: MELATONIN 5 MG TABLETS PO SCH (21:06)
[2021-07-06] MEDS ORDERED: methaDONE HCL 40 MG DISPERSABLE TABLET ONE (08:37)
[2021-07-06] MEDS ORDERED: methaDONE HCL 10 MG TABLET ONE (08:38)
[2021-07-06] MEDS: BACITRACIN 0.9 GM PACKET TP SCH ×2 (10:01→23:12)
[2021-07-06] MEDS: PRENATAL VITAMINS W/ FOLIC ACID TABLET (FP) PO SCH (10:02)
[2021-07-06] MEDS: LIDOCAINE 5% TOPICAL PATCH TP SCH (10:02)
[2021-07-06] MEDS: BICTEGRAV/EMTRICIT/TENOFOV (BIKTARVY) 50-200-25 MG TABLET PO SCH (10:02)
[2021-07-06] MEDS: methaDONE 40 MG, methaDONE 20 MG PO SCH (10:03)
[2021-07-06] MEDS: LIDOCAINE PATCH REMOVAL MC SCH (23:12)
[2021-07-06] MEDS: MELATONIN 5 MG TABLETS PO SCH (23:13)
[2021-07-06] MEDS: THIAMINE HCL 100 MG TABLET (FP) PO SCH (23:13)
[2021-07-07] MEDS ORDERED: methaDONE HCL 40 MG DISPERSABLE TABLET ONE (08:36)
[2021-07-07] MEDS ORDERED: methaDONE HCL 10 MG TABLET ONE (08:36)
[2021-07-07] MEDS: BICTEGRAV/EMTRICIT/TENOFOV (BIKTARVY) 50-200-25 MG TABLET PO SCH (10:17)
[2021-07-07] MEDS: PRENATAL VITAMINS W/ FOLIC ACID TABLET (FP) PO SCH (10:17)
[2021-07-07] MEDS: BACITRACIN 0.9 GM PACKET TP SCH ×2 (10:18→23:14)
[2021-07-07] MEDS: methaDONE 40 MG, methaDONE 20 MG PO SCH (10:18)
[2021-07-07] MEDS: LIDOCAINE 5% TOPICAL PATCH TP SCH (10:19)
[2021-07-07] MEDS: LIDOCAINE PATCH REMOVAL MC SCH (23:15)
[2021-07-07] MEDS: THIAMINE HCL 100 MG TABLET (FP) PO SCH (23:15)
[2021-07-07] MEDS: MELATONIN 5 MG TABLETS PO SCH (23:15)
[2021-07-08] MEDS ORDERED: methaDONE HCL 10 MG TABLET ONE (08:36)
[2021-07-08] MEDS ORDERED: methaDONE HCL 40 MG DISPERSABLE TABLET ONE (08:36)
[2021-07-08] MEDS: BICTEGRAV/EMTRICIT/TENOFOV (BIKTARVY) 50-200-25 MG TABLET PO SCH (09:43)
[2021-07-08] MEDS: PRENATAL VITAMINS W/ FOLIC ACID TABLET (FP) PO SCH (09:43)
[2021-07-08] MEDS: BACITRACIN 0.9 GM PACKET TP SCH ×2 (09:43→22:39)
[2021-07-08] MEDS: methaDONE 40 MG, methaDONE 20 MG PO SCH (09:43)
[2021-07-08] MEDS: LIDOCAINE 5% TOPICAL PATCH TP SCH (09:43)
[2021-07-08] MEDS ORDERED: PT OWN MED DRAWER 7, Y5N ONE (15:20)
[2021-07-08 19:45] LABS: EPI CELLS >36 /uL (0-25.1); HYALINE CASTS 3 /uL (0-3.1); PH,URINE 6.5 (5.0-8.0); URINE APPEARANCE CLOUDY; URINE BACTERIA 34 /uL (0-1359); URINE BILIRUBIN NEGATIVE (NEGATIVE); URINE COLOR DK YELLOW; URINE GLUCOSE (UA) NEGATIVE (NEGATIVE); URINE KETONE NEGATIVE (NEGATIVE); URINE LEUK ESTERASE TRACE (NEGATIVE); URINE NITRITE NEGATIVE (NEGATIVE); URINE PROTEIN NEGATIVE (NEGATIVE); URINE RBC 31 /uL (0-23.9); URINE WBC 14 /uL (0-25.8)
[2021-07-08] MEDS: THIAMINE HCL 100 MG TABLET (FP) PO SCH (22:39)
[2021-07-08] MEDS: MELATONIN 5 MG TABLETS PO SCH (22:39)
[2021-07-08] MEDS: LIDOCAINE PATCH REMOVAL MC SCH (22:40)
[2021-07-09] MEDS ORDERED: methaDONE HCL 40 MG DISPERSABLE TABLET ONE (08:49)
[2021-07-09] MEDS ORDERED: methaDONE HCL 10 MG TABLET ONE (08:49)
[2021-07-09] MEDS: methaDONE 40 MG, methaDONE 20 MG PO SCH (10:09)
[2021-07-09] MEDS: PRENATAL VITAMINS W/ FOLIC ACID TABLET (FP) PO SCH (10:09)
[2021-07-09] MEDS: LIDOCAINE 5% TOPICAL PATCH TP SCH (10:10)
[2021-07-09] MEDS: BACITRACIN 0.9 GM PACKET TP SCH ×2 (10:10→22:14)
[2021-07-09] MEDS ORDERED: PT OWN MED DRAWER 7, Y5N ONE (10:11)
[2021-07-09] MEDS: BICTEGRAV/EMTRICIT/TENOFOV (BIKTARVY) 50-200-25 MG TABLET PO SCH (12:11)
[2021-07-09] MEDS: MELATONIN 5 MG TABLETS PO SCH (22:14)
[2021-07-09] MEDS: LIDOCAINE PATCH REMOVAL MC SCH (22:14)
[2021-07-09] MEDS: THIAMINE HCL 100 MG TABLET (FP) PO SCH (22:14)
[2021-07-10] MEDS ORDERED: methaDONE HCL 40 MG DISPERSABLE TABLET ONE (08:55)
[2021-07-10] MEDS ORDERED: methaDONE HCL 10 MG TABLET ONE (08:55)
[2021-07-10] MEDS: BICTEGRAV/EMTRICIT/TENOFOV (BIKTARVY) 50-200-25 MG TABLET PO SCH (08:58)
[2021-07-10] MEDS: LIDOCAINE 5% TOPICAL PATCH TP SCH (09:58)
[2021-07-10] MEDS: methaDONE 40 MG, methaDONE 20 MG PO SCH (09:58)
[2021-07-10] MEDS: BACITRACIN 0.9 GM PACKET TP SCH ×2 (09:58→21:46)
[2021-07-10] MEDS: PRENATAL VITAMINS W/ FOLIC ACID TABLET (FP) PO SCH (09:59)
[2021-07-10] MEDS: MELATONIN 5 MG TABLETS PO SCH (21:46)
[2021-07-10] MEDS: THIAMINE HCL 100 MG TABLET (FP) PO SCH (21:46)
[2021-07-10] MEDS: LIDOCAINE PATCH REMOVAL MC SCH (21:46)
[2021-07-11] MEDS ORDERED: methaDONE HCL 40 MG DISPERSABLE TABLET ONE ×2 (04:15→09:48)
[2021-07-11] MEDS ORDERED: methaDONE HCL 10 MG TABLET ONE ×2 (04:15→09:49)
[2021-07-11] MEDS ORDERED: methaDONE 40 MG, methaDONE 20 MG PO SCH (06:00)
[2021-07-11] MEDS: BICTEGRAV/EMTRICIT/TENOFOV (BIKTARVY) 50-200-25 MG TABLET PO SCH (08:48)
[2021-07-11] MEDS ORDERED: PT OWN MED DRAWER 7, Y5N ONE (09:26)
[2021-07-11] MEDS: PRENATAL VITAMINS W/ FOLIC ACID TABLET (FP) PO SCH (09:48)
[2021-07-11] MEDS: BACITRACIN 0.9 GM PACKET TP SCH ×2 (09:48→22:48)
[2021-07-11] MEDS: methaDONE 40 MG, methaDONE 20 MG PO SCH (09:49)
[2021-07-11] MEDS: LIDOCAINE 5% TOPICAL PATCH TP SCH (09:49)
[2021-07-11] MEDS: LIDOCAINE PATCH REMOVAL MC SCH (22:48)
[2021-07-11] MEDS: MELATONIN 5 MG TABLETS PO SCH (22:49)
[2021-07-11] MEDS: THIAMINE HCL 100 MG TABLET (FP) PO SCH (22:49)
[2021-07-12] MEDS ORDERED: methaDONE HCL 40 MG DISPERSABLE TABLET ONE (08:36)
[2021-07-12] MEDS ORDERED: methaDONE HCL 10 MG TABLET ONE (08:37)
[2021-07-12] MEDS: BICTEGRAV/EMTRICIT/TENOFOV (BIKTARVY) 50-200-25 MG TABLET PO SCH (08:50)
[2021-07-12] MEDS: BACITRACIN 0.9 GM PACKET TP SCH ×2 (10:13→23:29)
[2021-07-12] MEDS: PRENATAL VITAMINS W/ FOLIC ACID TABLET (FP) PO SCH (10:13)
[2021-07-12] MEDS: LIDOCAINE 5% TOPICAL PATCH TP SCH (10:13)
[2021-07-12] MEDS: methaDONE 40 MG, methaDONE 20 MG PO SCH (10:13)
[2021-07-12] MEDS: LIDOCAINE PATCH REMOVAL MC SCH (23:29)
[2021-07-12] MEDS: MELATONIN 5 MG TABLETS PO SCH (23:29)
[2021-07-12] MEDS: THIAMINE HCL 100 MG TABLET (FP) PO SCH (23:29)
[2021-07-13] MEDS ORDERED: methaDONE HCL 40 MG DISPERSABLE TABLET ONE (08:04)
[2021-07-13] MEDS ORDERED: methaDONE HCL 10 MG TABLET ONE (08:04)
[2021-07-13] MEDS: BICTEGRAV/EMTRICIT/TENOFOV (BIKTARVY) 50-200-25 MG TABLET PO SCH (09:00)
[2021-07-13] MEDS ORDERED: PT OWN MED DRAWER 7, Y5N ONE (10:09)
[2021-07-13] MEDS: LIDOCAINE 5% TOPICAL PATCH TP SCH (10:10)
[2021-07-13] MEDS: methaDONE 40 MG, methaDONE 20 MG PO SCH (10:10)
[2021-07-13] MEDS: PRENATAL VITAMINS W/ FOLIC ACID TABLET (FP) PO SCH (10:11)
[2021-07-13] MEDS: BACITRACIN 0.9 GM PACKET TP SCH ×2 (10:11→21:44)
[2021-07-13] MEDS: MELATONIN 5 MG TABLETS PO SCH (21:44)
[2021-07-13] MEDS: THIAMINE HCL 100 MG TABLET (FP) PO SCH (21:44)
[2021-07-13] MEDS: LIDOCAINE PATCH REMOVAL MC SCH (21:44)
[2021-07-14] MEDS ORDERED: methaDONE HCL 40 MG DISPERSABLE TABLET ONE (07:37)
[2021-07-14] MEDS ORDERED: methaDONE HCL 10 MG TABLET ONE (07:37)
[2021-07-14] MEDS ORDERED: PT OWN MED DRAWER 7, Y5N ONE (07:45)
[2021-07-14] MEDS: methaDONE 40 MG, methaDONE 20 MG PO SCH (09:49)
[2021-07-14] MEDS: BICTEGRAV/EMTRICIT/TENOFOV (BIKTARVY) 50-200-25 MG TABLET PO SCH (09:49)
[2021-07-14] MEDS: BACITRACIN 0.9 GM PACKET TP SCH ×2 (09:50→22:15)
[2021-07-14] MEDS: PRENATAL VITAMINS W/ FOLIC ACID TABLET (FP) PO SCH (09:50)
[2021-07-14] MEDS: LIDOCAINE 5% TOPICAL PATCH TP SCH (09:50)
[2021-07-14] MEDS: MELATONIN 5 MG TABLETS PO SCH (22:16)
[2021-07-14] MEDS: THIAMINE HCL 100 MG TABLET (FP) PO SCH (22:16)
[2021-07-14] MEDS: LIDOCAINE PATCH REMOVAL MC SCH (22:16)
[2021-07-15] MEDS: BICTEGRAV/EMTRICIT/TENOFOV (BIKTARVY) 50-200-25 MG TABLET PO SCH (08:36)
[2021-07-15] MEDS ORDERED: methaDONE HCL 10 MG TABLET ONE (08:48)
[2021-07-15] MEDS ORDERED: methaDONE HCL 40 MG DISPERSABLE TABLET ONE (08:48)
[2021-07-15] MEDS: LIDOCAINE 5% TOPICAL PATCH TP SCH (10:33)
[2021-07-15] MEDS: PRENATAL VITAMINS W/ FOLIC ACID TABLET (FP) PO SCH (10:33)
[2021-07-15] MEDS: BACITRACIN 0.9 GM PACKET TP SCH ×2 (10:34→22:07)
[2021-07-15] MEDS: methaDONE 40 MG, methaDONE 20 MG PO SCH ×2 (10:34→10:55)
[2021-07-15] MEDS: THIAMINE HCL 100 MG TABLET (FP) PO SCH (22:07)
[2021-07-15] MEDS: LIDOCAINE PATCH REMOVAL MC SCH (22:07)
[2021-07-15] MEDS: MELATONIN 5 MG TABLETS PO SCH (22:07)
[2021-07-16] MEDS ORDERED: methaDONE HCL 40 MG DISPERSABLE TABLET ONE (08:42)
[2021-07-16] MEDS ORDERED: methaDONE HCL 10 MG TABLET ONE (08:43)
[2021-07-16] MEDS: BICTEGRAV/EMTRICIT/TENOFOV (BIKTARVY) 50-200-25 MG TABLET PO SCH (08:50)
[2021-07-16] MEDS: BACITRACIN 0.9 GM PACKET TP SCH ×2 (10:00→22:16)
[2021-07-16] MEDS: LIDOCAINE 5% TOPICAL PATCH TP SCH (10:00)
[2021-07-16] MEDS: PRENATAL VITAMINS W/ FOLIC ACID TABLET (FP) PO SCH (10:00)
[2021-07-16] MEDS: methaDONE 40 MG, methaDONE 20 MG PO SCH (10:00)
[2021-07-16] MEDS: MELATONIN 5 MG TABLETS PO SCH (22:16)
[2021-07-16] MEDS: THIAMINE HCL 100 MG TABLET (FP) PO SCH (22:16)
[2021-07-16] MEDS: LIDOCAINE PATCH REMOVAL MC SCH (22:16)
[2021-07-17] MEDS ORDERED: methaDONE HCL 40 MG DISPERSABLE TABLET ONE (08:47)
[2021-07-17] MEDS ORDERED: methaDONE HCL 10 MG TABLET ONE (08:47)
[2021-07-17] MEDS: BICTEGRAV/EMTRICIT/TENOFOV (BIKTARVY) 50-200-25 MG TABLET PO SCH (08:50)
[2021-07-17] MEDS: BACITRACIN 0.9 GM PACKET TP SCH ×2 (10:14→22:45)
[2021-07-17] MEDS: methaDONE 40 MG, methaDONE 20 MG PO SCH (10:14)
[2021-07-17] MEDS: PRENATAL VITAMINS W/ FOLIC ACID TABLET (FP) PO SCH (10:14)
[2021-07-17] MEDS: LIDOCAINE 5% TOPICAL PATCH TP SCH (10:16)
[2021-07-17] MEDS ORDERED: PT OWN MED DRAWER 7, Y5N ONE (13:21)
[2021-07-17] MEDS: LIDOCAINE PATCH REMOVAL MC SCH (22:45)
[2021-07-17] MEDS: THIAMINE HCL 100 MG TABLET (FP) PO SCH (22:45)
[2021-07-17] MEDS: MELATONIN 5 MG TABLETS PO SCH (22:45)
[2021-07-18] MEDS ORDERED: methaDONE HCL 40 MG DISPERSABLE TABLET ONE (08:37)
[2021-07-18] MEDS ORDERED: methaDONE HCL 10 MG TABLET ONE (08:38)
[2021-07-18] MEDS: BACITRACIN 0.9 GM PACKET TP SCH ×2 (10:41→23:49)
[2021-07-18] MEDS: methaDONE 40 MG, methaDONE 20 MG PO SCH (10:42)
[2021-07-18] MEDS: LIDOCAINE 5% TOPICAL PATCH TP SCH (10:42)
[2021-07-18] MEDS: BICTEGRAV/EMTRICIT/TENOFOV (BIKTARVY) 50-200-25 MG TABLET PO SCH (10:42)
[2021-07-18] MEDS: PRENATAL VITAMINS W/ FOLIC ACID TABLET (FP) PO SCH (10:42)
[2021-07-18] MEDS ORDERED: COLLOIDAL OATMEAL 1 BAR EACH TP PRN (15:25)
[2021-07-18] MEDS ORDERED: PT OWN MED DRAWER 7, Y5N ONE (20:30)
[2021-07-18] MEDS: MELATONIN 5 MG TABLETS PO SCH (23:49)
[2021-07-18] MEDS: METHYL SALICYLATE/MENTHOL OINT 30 GM TUBE TP SCH (23:49)
[2021-07-18] MEDS: LIDOCAINE PATCH REMOVAL MC SCH (23:49)
[2021-07-18] MEDS: THIAMINE HCL 100 MG TABLET (FP) PO SCH (23:50)
[2021-07-19] MEDS: BACITRACIN 0.9 GM PACKET TP SCH ×2 (10:47→22:30)
[2021-07-19] MEDS: LIDOCAINE 5% TOPICAL PATCH TP SCH (10:47)
[2021-07-19] MEDS: PRENATAL VITAMINS W/ FOLIC ACID TABLET (FP) PO SCH (10:47)
[2021-07-19] MEDS: BICTEGRAV/EMTRICIT/TENOFOV (BIKTARVY) 50-200-25 MG TABLET PO SCH (10:47)
[2021-07-19] MEDS ORDERED: methaDONE HCL 10 MG TABLET ONE (10:48)
[2021-07-19] MEDS ORDERED: methaDONE HCL 40 MG DISPERSABLE TABLET ONE (10:49)
[2021-07-19] MEDS: methaDONE 40 MG, methaDONE 20 MG PO SCH (10:49)
[2021-07-19] MEDS: METHYL SALICYLATE/MENTHOL OINT 30 GM TUBE TP SCH (22:30)
[2021-07-19] MEDS: MELATONIN 5 MG TABLETS PO SCH (22:30)
[2021-07-19] MEDS: LIDOCAINE PATCH REMOVAL MC SCH (22:30)
[2021-07-19] MEDS: THIAMINE HCL 100 MG TABLET (FP) PO SCH (22:32)
[2021-07-20] MEDS ORDERED: methaDONE HCL 40 MG DISPERSABLE TABLET ONE (09:07)
[2021-07-20] MEDS ORDERED: methaDONE HCL 10 MG TABLET ONE (09:07)
[2021-07-20] MEDS: PRENATAL VITAMINS W/ FOLIC ACID TABLET (FP) PO SCH (10:48)
[2021-07-20] MEDS: BACITRACIN 0.9 GM PACKET TP SCH ×2 (10:49→22:06)
[2021-07-20] MEDS: methaDONE 40 MG, methaDONE 20 MG PO SCH (10:49)
[2021-07-20] MEDS: BICTEGRAV/EMTRICIT/TENOFOV (BIKTARVY) 50-200-25 MG TABLET PO SCH (10:49)
[2021-07-20] MEDS: LIDOCAINE 5% TOPICAL PATCH TP SCH (10:50)
[2021-07-20] MEDS: LIDOCAINE PATCH REMOVAL MC SCH (22:06)
[2021-07-20] MEDS: METHYL SALICYLATE/MENTHOL OINT 30 GM TUBE TP SCH (22:06)
[2021-07-20] MEDS: MELATONIN 5 MG TABLETS PO SCH (22:07)
[2021-07-20] MEDS: THIAMINE HCL 100 MG TABLET (FP) PO SCH (22:07)
[2021-07-21] MEDS ORDERED: methaDONE HCL 10 MG TABLET ONE ×2 (09:02→09:08)
[2021-07-21] MEDS ORDERED: methaDONE HCL 40 MG DISPERSABLE TABLET ONE (09:08)
[2021-07-21] MEDS: BACITRACIN 0.9 GM PACKET TP SCH ×2 (10:21→23:38)
[2021-07-21] MEDS: PRENATAL VITAMINS W/ FOLIC ACID TABLET (FP) PO SCH (10:22)
[2021-07-21] MEDS: methaDONE 40 MG, methaDONE 20 MG PO SCH (10:22)
[2021-07-21] MEDS: LIDOCAINE 5% TOPICAL PATCH TP SCH (10:22)
[2021-07-21] MEDS: BICTEGRAV/EMTRICIT/TENOFOV (BIKTARVY) 50-200-25 MG TABLET PO SCH (11:05)
[2021-07-21] MEDS ORDERED: PT OWN MED DRAWER 7, Y5N ONE (19:43)
[2021-07-21] MEDS: LIDOCAINE PATCH REMOVAL MC SCH (22:00)
[2021-07-21] MEDS: METHYL SALICYLATE/MENTHOL OINT 30 GM TUBE TP SCH (23:38)
[2021-07-21] MEDS: THIAMINE HCL 100 MG TABLET (FP) PO SCH (23:38)
[2021-07-21] MEDS: MELATONIN 5 MG TABLETS PO SCH (23:38)
[2021-07-22] MEDS ORDERED: methaDONE HCL 40 MG DISPERSABLE TABLET ONE (09:30)
[2021-07-22] MEDS ORDERED: methaDONE HCL 10 MG TABLET ONE (09:30)
[2021-07-22] MEDS: methaDONE 40 MG, methaDONE 20 MG PO SCH (10:04)
[2021-07-22] MEDS: PRENATAL VITAMINS W/ FOLIC ACID TABLET (FP) PO SCH (10:04)
[2021-07-22] MEDS: BACITRACIN 0.9 GM PACKET TP SCH ×2 (10:04→23:47)
[2021-07-22] MEDS: BICTEGRAV/EMTRICIT/TENOFOV (BIKTARVY) 50-200-25 MG TABLET PO SCH (10:04)
[2021-07-22] MEDS: LIDOCAINE 5% TOPICAL PATCH TP SCH (10:05)
[2021-07-22] MEDS: MELATONIN 5 MG TABLETS PO SCH (23:47)
[2021-07-22] MEDS: THIAMINE HCL 100 MG TABLET (FP) PO SCH (23:47)
[2021-07-22] MEDS: LIDOCAINE PATCH REMOVAL MC SCH (23:47)
[2021-07-22] MEDS: METHYL SALICYLATE/MENTHOL OINT 30 GM TUBE TP SCH (23:47)
[2021-07-23] MEDS ORDERED: methaDONE HCL 10 MG TABLET ONE (08:55)
[2021-07-23] MEDS ORDERED: methaDONE HCL 40 MG DISPERSABLE TABLET ONE (08:56)
[2021-07-23] MEDS ORDERED: PT OWN MED DRAWER 7, Y5N ONE (08:57)
[2021-07-23] MEDS: LIDOCAINE 5% TOPICAL PATCH TP SCH (10:32)
[2021-07-23] MEDS: BICTEGRAV/EMTRICIT/TENOFOV (BIKTARVY) 50-200-25 MG TABLET PO SCH (10:32)
[2021-07-23] MEDS: PRENATAL VITAMINS W/ FOLIC ACID TABLET (FP) PO SCH (10:32)
[2021-07-23] MEDS: BACITRACIN 0.9 GM PACKET TP SCH ×2 (10:32→23:09)
[2021-07-23] MEDS: methaDONE 40 MG, methaDONE 20 MG PO SCH (10:33)
[2021-07-23] MEDS: METHYL SALICYLATE/MENTHOL OINT 30 GM TUBE TP SCH (23:10)
[2021-07-23] MEDS: MELATONIN 5 MG TABLETS PO SCH (23:10)
[2021-07-23] MEDS: THIAMINE HCL 100 MG TABLET (FP) PO SCH (23:10)
[2021-07-23] MEDS: LIDOCAINE PATCH REMOVAL MC SCH (23:25)
[2021-07-24] MEDS ORDERED: methaDONE HCL 10 MG TABLET ONE (08:46)
[2021-07-24] MEDS ORDERED: methaDONE HCL 40 MG DISPERSABLE TABLET ONE (08:47)
[2021-07-24] MEDS: methaDONE 40 MG, methaDONE 20 MG PO SCH (09:34)
[2021-07-24] MEDS: BICTEGRAV/EMTRICIT/TENOFOV (BIKTARVY) 50-200-25 MG TABLET PO SCH (09:34)
[2021-07-24] MEDS: PRENATAL VITAMINS W/ FOLIC ACID TABLET (FP) PO SCH (09:35)
[2021-07-24] MEDS: BACITRACIN 0.9 GM PACKET TP SCH ×2 (09:36→22:41)
[2021-07-24] MEDS: LIDOCAINE 5% TOPICAL PATCH TP SCH (09:36)
[2021-07-24] MEDS: METHYL SALICYLATE/MENTHOL OINT 30 GM TUBE TP SCH (22:42)
[2021-07-24] MEDS: MELATONIN 5 MG TABLETS PO SCH (22:43)
[2021-07-24] MEDS: LIDOCAINE PATCH REMOVAL MC SCH (22:43)
[2021-07-24] MEDS: THIAMINE HCL 100 MG TABLET (FP) PO SCH (22:44)
[2021-07-25] MEDS ORDERED: methaDONE HCL 10 MG TABLET ONE (09:25)
[2021-07-25] MEDS ORDERED: methaDONE HCL 40 MG DISPERSABLE TABLET ONE (09:26)
[2021-07-25] MEDS: LIDOCAINE 5% TOPICAL PATCH TP SCH (12:01)
[2021-07-25] MEDS: BICTEGRAV/EMTRICIT/TENOFOV (BIKTARVY) 50-200-25 MG TABLET PO SCH (12:01)
[2021-07-25] MEDS: PRENATAL VITAMINS W/ FOLIC ACID TABLET (FP) PO SCH (12:01)
[2021-07-25] MEDS: BACITRACIN 0.9 GM PACKET TP SCH ×2 (12:01→22:19)
[2021-07-25] MEDS: methaDONE 40 MG, methaDONE 20 MG PO SCH (13:52)
[2021-07-25] MEDS: METHYL SALICYLATE/MENTHOL OINT 30 GM TUBE TP SCH (22:19)
[2021-07-25] MEDS: THIAMINE HCL 100 MG TABLET (FP) PO SCH (22:20)
[2021-07-25] MEDS: MELATONIN 5 MG TABLETS PO SCH (22:20)
[2021-07-25] MEDS: LIDOCAINE PATCH REMOVAL MC SCH (22:20)
[2021-07-26 06:54] VITALS: BP 149/88; PULSE 55; TEMP 96.9
[2021-07-26] MEDS ORDERED: methaDONE HCL 40 MG DISPERSABLE TABLET ONE (08:51)
[2021-07-26] MEDS ORDERED: methaDONE HCL 10 MG TABLET ONE (08:51)
[2021-07-26] MEDS: methaDONE 40 MG, methaDONE 20 MG PO SCH (09:53)
[2021-07-26] MEDS: BICTEGRAV/EMTRICIT/TENOFOV (BIKTARVY) 50-200-25 MG TABLET PO SCH (09:54)
[2021-07-26] MEDS: LIDOCAINE 5% TOPICAL PATCH TP SCH (09:54)
[2021-07-26] MEDS: PRENATAL VITAMINS W/ FOLIC ACID TABLET (FP) PO SCH (09:54)
[2021-07-26] MEDS: BACITRACIN 0.9 GM PACKET TP SCH (09:54)
== END 2021-07-26 11:15 | disposition home or self-care (01) | DRG 895 ==
LOC: YASAS 12:55 → Y3W 12:56 → Y5N 07-18 14:59
PROVIDERS: ADMIT Allergy & Immunology; ATTEND Allergy & Immunology
PROC: HZ42ZZZ Group Counseling for Substance Abuse Treatment, Cognitive-Behavioral (ICD-10-PCS; principal; 2021-07-01)
DX: F10.20 Alcohol dependence, uncomplicated (principal); F11.20 Opioid dependence, uncomplicated; F14.20 Cocaine dependence, uncomplicated; Z68.1 Body mass index [BMI] 19.9 or less, adult; F17.210 Nicotine dependence, cigarettes, uncomplicated; F32.9 Major depressive disorder, single episode, unspecified; Z21 Asymptomatic human immunodeficiency virus [HIV] infection status; I10 Essential (primary) hypertension; B18.2 Chronic viral hepatitis C; M19.90 Unspecified osteoarthritis, unspecified site; M54.32 Sciatica, left side; R63.4 Abnormal weight loss; Z99.89 Dependence on other enabling machines and devices; Z88.2 Allergy status to sulfonamides; Z88.8 Allergy status to other drugs, medicaments and biological substances
CPT/HCPCS: 81003; 87086

== ENCOUNTER 2022-02-14 11:53 | Inpatient (IN) | payer OTHER ==
[2022-02-14] MEDS ORDERED: MAGNESIUM CITRATE 300 ML BOTTLE PO PRN (12:50)
[2022-02-14] MEDS ORDERED: ACETAMINOPHEN 325 MG TABLET (FP) PO PRN ×2 (12:50)
[2022-02-14] MEDS ORDERED: MENTHOL/PHENOL 1 EACH UD MM PRN (12:50)
[2022-02-14] MEDS ORDERED: ONDANSETRON *ODT* 4 MG TABLET SL PRN (12:50)
[2022-02-14] MEDS ORDERED: BISMUTH SUBSALICYLATE 524 MG/30 ML PO PRN (12:50)
[2022-02-14] MEDS ORDERED: MAG HYDROX/AL HYDROX/SIMETH 30 ML UNIT-DOSE CUP PO PRN (12:50)
[2022-02-14] MEDS ORDERED: MAGNESIUM HYDROX 2400MG/30ML ORAL SUSPENSION 30 ML CUP PO PRN (12:50)
[2022-02-14] MEDS ORDERED: METHOCARBAMOL 500 MG TABLET PO PRN (12:50)
[2022-02-14] MEDS ORDERED: LOPERAMIDE HCL 2 MG CAPSULE PO PRN (12:50)
[2022-02-14] MEDS ORDERED: diazePAM 5 MG TABLET PO PRN (12:50)
[2022-02-14] MEDS ORDERED: NICOTINE 10 MG CARTRIDGE (INHALER) IH PRN (12:50)
[2022-02-14] MEDS ORDERED: IBUPROFEN 400 MG TABLET (FP) PO PRN (12:50)
[2022-02-14] MEDS ORDERED: NICOTINE POLACRILEX 4 MG GUM BUC PRN (12:50)
[2022-02-14] MEDS ORDERED: hydrOXYzine PAMOATE 25 MG CAPSULE (FP) PO SCH (14:00)
[2022-02-14 15:24] VITALS: BMI 15.6
[2022-02-14] MEDS ORDERED: SODIUM PHOSPHATE/NA BIPHOS 133 ML ENEMA PR ONE (17:18)
[2022-02-14] MEDS: diazePAM 5 MG TABLET PO SCH ×2 (19:40→23:01)
[2022-02-14] MEDS: CEPHALEXIN MONOHYDRATE 500 MG CAPSULE (UD) PO SCH ×2 (19:40→23:01)
[2022-02-14] MEDS: PRENATAL VITAMINS W/ FOLIC ACID TABLET (FP) PO SCH (19:44)
[2022-02-14] MEDS: MELATONIN 5 MG TABLETS PO SCH (23:00)
[2022-02-14] MEDS: THIAMINE HCL 100 MG TABLET (FP) PO SCH (23:00)
[2022-02-15] MEDS ORDERED: AMMONIUM LACTATE 12% LOTION 225 GM BOTTLE TP PRN (01:07)
[2022-02-15] MEDS: diazePAM 5 MG TABLET PO SCH ×4 (07:24→23:15)
[2022-02-15] MEDS: CEPHALEXIN MONOHYDRATE 500 MG CAPSULE (UD) PO SCH ×4 (07:28→23:26)
[2022-02-15] MEDS: BICTEGRAV/EMTRICIT/TENOFOV (BIKTARVY) 50-200-25 MG TABLET PO SCH (07:29)
[2022-02-15] MEDS: CYPROHEPTADINE HCL 4 MG TABLET PO SCH ×2 (07:30→18:07)
[2022-02-15] MEDS: ESCITALOPRAM OXALATE 10 MG TABLET PO SCH (11:35)
[2022-02-15] MEDS: PRENATAL VITAMINS W/ FOLIC ACID TABLET (FP) PO SCH (11:35)
[2022-02-15 12:31] LABS: ALBUMIN 2.8 g/dl (3.4-5.0); CALCIUM 10.3 mg/dL (8.5-10.1)
[2022-02-15 12:35] LABS: HEMOGLOBIN 13.9 GM/dL (10.7-15.3); MCH 27.6 pg (25.7-33.7); MCHC 31.7 g/dl (32.0-36.0); MEAN CELL VOLUME 87.2 fl (80-96); MEAN PLT VOLUME 8.7 fl (7.5-11.1); PLATELET COUNT 121 10^3/uL (134-434); RBC 5.04 M/mm3 (3.60-5.2); RDW 14.5 % (11.6-15.6)
[2022-02-15 12:36] LABS: BILIRUBIN,TOTAL 0.3 mg/dL (0.2-1); TOT PROT 7.9 g/dl (6.4-8.2)
[2022-02-15 12:37] LABS: BLOOD UREA NITROGEN 21.3 mg/dL (7-18)
[2022-02-15 12:57] LABS: WHITE BLOOD COUNT 1.8 K/mm3 (4.0-10.0)
[2022-02-15] MEDS: methaDONE HCL 10 MG TABLET PO SCH (15:40)
[2022-02-15] MEDS ORDERED: DOCUSATE SODIUM 100 MG CAPSULE (FP) PO SCH (22:00)
[2022-02-15] MEDS: THIAMINE HCL 100 MG TABLET (FP) PO SCH (23:08)
[2022-02-15] MEDS: MELATONIN 5 MG TABLETS PO SCH (23:08)
[2022-02-16] MEDS: diazePAM 5 MG TABLET PO SCH ×2 (07:30→15:27)
[2022-02-16] MEDS: CEPHALEXIN MONOHYDRATE 500 MG CAPSULE (UD) PO SCH ×3 (07:37→17:28)
[2022-02-16] MEDS: CYPROHEPTADINE HCL 4 MG TABLET PO SCH ×2 (07:37→17:28)
[2022-02-16] MEDS: BICTEGRAV/EMTRICIT/TENOFOV (BIKTARVY) 50-200-25 MG TABLET PO SCH (07:39)
[2022-02-16] MEDS ORDERED: TRIMETHOBENZAMIDE HCL 200MG/2ML INJ IM PRN ×2 (07:55→07:59)
[2022-02-16 10:06] LABS: SARS-CoV-2 NAA Not Detected (Not Detected)
[2022-02-16] MEDS ORDERED: amLODIPine BESYLATE 10 MG TABLET (FP) PO SCH (11:30)
[2022-02-16] MEDS: methaDONE HCL 10 MG TABLET PO SCH (12:30)
[2022-02-16] MEDS: ESCITALOPRAM OXALATE 10 MG TABLET PO SCH (12:31)
[2022-02-16] MEDS: PRENATAL VITAMINS W/ FOLIC ACID TABLET (FP) PO SCH (12:32)
[2022-02-16 12:54] LABS: HEMATOCRIT 49.5 % (32.4-45.2); HEMOGLOBIN 15.3 GM/dL (10.7-15.3); MCH 27.1 pg (25.7-33.7); MCHC 30.8 g/dl (32.0-36.0); MEAN CELL VOLUME 88.1 fl (80-96); MEAN PLT VOLUME 8.9 fl (7.5-11.1); PLATELET COUNT 156 10^3/uL (134-434); RBC 5.62 M/mm3 (3.60-5.2); RDW 15.1 % (11.6-15.6); WHITE BLOOD COUNT 3.9 K/mm3 (4.0-10.0)
[2022-02-16 13:52] LABS: ANISOCYTOSIS 0; MACROCYTOSIS 0
[2022-02-16] MEDS ORDERED: TRIMETHOBENZAMIDE HCL 200MG/2ML INJ IM ONE (14:05)
[2022-02-16] MEDS ORDERED: cloNIDine HCL 0.1 MG TABLET PO ONE ×2 (17:13→19:22)
[2022-02-16] MEDS ORDERED: MAG HYDROX/AL HYDROX/SIMETH 30 ML UNIT-DOSE CUP PO ONE (19:27)
[2022-02-16 21:11] VITALS: BP 175/110; PULSE 18; TEMP 98.4
[2022-02-17] MEDS ORDERED: diazePAM 5 MG TABLET PO SCH (06:00)
[2022-02-18] MEDS ORDERED: diazePAM 5 MG TABLET PO ONE (06:00)
== END 2022-02-17 03:15 | disposition short-term general hospital (02) | DRG 897 ==
LOC: YASAS 11:53 → Y6N 15:17 → Y3N 16:33
PROVIDERS: ADMIT Allergy & Immunology; ATTEND Allergy & Immunology
PROC: HZ2ZZZZ Detoxification Services for Substance Abuse Treatment (ICD-10-PCS; principal; 2022-02-14)
DX: F10.230 Alcohol dependence with withdrawal, uncomplicated (principal); F14.20 Cocaine dependence, uncomplicated; L03.114 Cellulitis of left upper limb; F12.20 Cannabis dependence, uncomplicated; F17.210 Nicotine dependence, cigarettes, uncomplicated; F19.24 Other psychoactive substance dependence with psychoactive substance-induced mood disorder; Z21 Asymptomatic human immunodeficiency virus [HIV] infection status; E88.09 Other disorders of plasma-protein metabolism, not elsewhere classified; E83.52 Hypercalcemia; I10 Essential (primary) hypertension; B18.2 Chronic viral hepatitis C; R11.2 Nausea with vomiting, unspecified; R79.89 Other specified abnormal findings of blood chemistry; Z99.89 Dependence on other enabling machines and devices
CPT/HCPCS: 36415; 80053; 85025; 85027; 86780; 93005; 93010; C9803-CS; J0735; Q0162; U0003; U0005

== ENCOUNTER 2022-02-16 20:47 | Inpatient (IN) | payer OTHER ==
[2022-02-16] MEDS ORDERED: FAMOTIDINE 20 MG/50 ML IVPB 20 MG/50 ML MG IVPB ONE ×2 (21:08→21:36)
[2022-02-16] MEDS ORDERED: SODIUM CHLORIDE 0.9% 500 ML INFUS.BAG IV ONE (21:08)
[2022-02-16] MEDS ORDERED: ONDANSETRON 4 MG/2 ML VIAL IVPUSH ONE (21:47)
[2022-02-16 21:52] LABS: BASO % 0.3 % (0-2.0); WHITE BLOOD COUNT 4.1 K/mm3 (4.0-10.0)
[2022-02-16 21:57] LABS: INR 0.95 (0.83-1.09); PROTHROMBIN TIME (PATIENT) 10.9 SEC (9.7-13.0)
[2022-02-16 22:00] LABS: ACTIVATED PTT 35.9 SECONDS (25.2-36.5); EOS % 0.3 % (0-4.5); HEMATOCRIT 56.8 % (32.4-45.2); HEMOGLOBIN 18.5 GM/dL (10.7-15.3); LYMPH % 15.5 % (8-40); MCH 27.5 pg (25.7-33.7); MCHC 32.5 g/dl (32.0-36.0); MEAN CELL VOLUME 84.7 fl (80-96); MEAN PLT VOLUME 8.3 fl (7.5-11.1); MONO % 1.7 % (3.8-10.2); NEUT % 82.2 % (42.8-82.8); PLATELET COUNT 152 10^3/uL (134-434); RBC 6.71 M/mm3 (3.60-5.2); RDW 14.3 % (11.6-15.6)
[2022-02-16 22:15] LABS: CALCIUM 10.5 mg/dL (8.5-10.1)
[2022-02-16 22:16] LABS: BLOOD UREA NITROGEN 15.7 mg/dL (7-18); MAGNESIUM 1.8 mg/dL (1.8-2.4)
[2022-02-16 22:19] LABS: CREATININE 1.2 mg/dL (0.55-1.3)
[2022-02-16 22:20] LABS: BILIRUBIN,TOTAL 0.6 mg/dL (0.2-1)
[2022-02-16 22:39] LABS: ALBUMIN 3.8 g/dl (3.4-5.0); LACTIC ACID 4.5 mmol/L (0.4-2.0); TOT PROT 11.8 g/dl (6.4-8.2)
[2022-02-16 22:41] LABS: EPI CELLS 14 /uL (0-25.1); HYALINE CASTS 1 /uL (0-3.1); URINE APPEARANCE CLEAR; URINE BACTERIA 6 /uL (0-1359); URINE BILIRUBIN NEGATIVE (NEGATIVE); URINE COLOR YELLOW; URINE GLUCOSE (UA) TRACE (NEGATIVE); URINE KETONE NEGATIVE (NEGATIVE); URINE LEUK ESTERASE NEGATIVE (NEGATIVE); URINE NITRITE NEGATIVE (NEGATIVE); URINE PROTEIN 3+ (NEGATIVE); URINE RBC 40 /uL (0-23.9); URINE WBC 8 /uL (0-25.8)
[2022-02-16 22:49] LABS: PLATELET ESTIMATE NORMAL
[2022-02-16] MEDS ORDERED: LABETALOL HCL 5 MG/1 ML (100MG/20 ML VIAL) IVPUSH ONE (23:25)
[2022-02-17 01:13] LABS: LACTIC ACID 4.6 mmol/L (0.4-2.0)
[2022-02-17] MEDS ORDERED: FOLIC ACID INJECTION - 1 MG, THIAMINE HCL 100 MG, MULTIVIT INJECTION ADULT 10 ML in SOD... IVPB ONE (03:13)
[2022-02-17] MEDS ORDERED: LORazepam 1 MG TABLET PO PRN (03:13)
[2022-02-17] MEDS ORDERED: diazePAM 5 MG TABLET PO PRN ×2 (03:19→05:00)
[2022-02-17] MEDS ORDERED: LORazepam 2 MG TABLET PO SCH (05:00)
[2022-02-17] MEDS ORDERED: LISINOPRIL 5 MG TABLET PO ONE (05:26)
[2022-02-17] MEDS ORDERED: LISINOPRIL 5 MG TABLET ONE (05:38)
[2022-02-17] MEDS ORDERED: cloNIDine HCL 0.1 MG TABLET ONE (08:58)
[2022-02-17] MEDS ORDERED: methaDONE HCL 40 MG DISPERSABLE TABLET ONE (08:58)
[2022-02-17] MEDS ORDERED: THIAMINE HCL 100 MG TABLET (FP) ONE (08:58)
[2022-02-17] MEDS ORDERED: methaDONE HCL 10 MG TABLET ONE (08:58)
[2022-02-17] MEDS ORDERED: ENOXAPARIN NA (PORCINE) 40 MG/0.4 ML DISP.SYRIN SQ ONE (08:59)
[2022-02-17] MEDS ORDERED: PANTOPRAZOLE SODIUM 40 MG VIAL ONE (08:59)
[2022-02-17] MEDS ORDERED: FOLIC ACID 1 MG TABLET (FP) ONE (08:59)
[2022-02-17] MEDS: BICTEGRAV/EMTRICIT/TENOFOV (BIKTARVY) 50-200-25 MG TABLET PO SCH (09:00)
[2022-02-17] MEDS: methaDONE 40 MG, methaDONE 30 MG PO SCH (09:00)
[2022-02-17] MEDS: FOLIC ACID 1 MG TABLET (FP) PO SCH (09:00)
[2022-02-17] MEDS: THIAMINE HCL 100 MG TABLET (FP) PO SCH (09:00)
[2022-02-17] MEDS: PANTOPRAZOLE SODIUM 40 MG VIAL IVPUSH SCH (09:00)
[2022-02-17] MEDS: NICOTINE 7 MG/24 HOURS TOPICAL PATCH TD SCH (09:43)
[2022-02-17] MEDS: ENOXAPARIN NA (PORCINE) 40 MG/0.4 ML DISP.SYRIN SQ SCH (09:43)
[2022-02-17] MEDS ORDERED: methaDONE HCL 40 MG DISPERSABLE TABLET PO SCH (10:00)
[2022-02-17] MEDS ORDERED: cloNIDine HCL 0.1 MG TABLET PO SCH (10:00)
[2022-02-17 10:15] LABS: OPIATES, URI NEGATIVE (NEGATIVE); PHENCYCLIDINE,URINE NEGATIVE (NEGATIVE); URINE BARBITURATES NEGATIVE (NEGATIVE)
[2022-02-17 10:16] LABS: COCAINE, UR NEGATIVE (NEGATIVE)
[2022-02-17 10:24] LABS: METHADONE, UR POSITIVE (NEGATIVE); URINE AMPHETAMINES NEGATIVE (NEGATIVE); URINE BENZODIAZEPINES POSITIVE (NEGATIVE)
[2022-02-17] MEDS: SODIUM CHLORIDE 0.45% 1,000 ML IV SCH (12:00)
[2022-02-17 12:16] LABS: BASO % 0.6 % (0-2.0); EOS % 0.3 % (0-4.5); HEMATOCRIT 49.2 % (32.4-45.2); HEMOGLOBIN 16.2 GM/dL (10.7-15.3); LYMPH % 24.1 % (8-40); MCH 27.6 pg (25.7-33.7); MCHC 32.9 g/dl (32.0-36.0); MEAN PLT VOLUME 8.6 fl (7.5-11.1); MONO % 5.3 % (3.8-10.2); NEUT % 69.7 % (42.8-82.8); PLATELET COUNT 141 10^3/uL (134-434); RBC 5.85 M/mm3 (3.60-5.2); RDW 14.6 % (11.6-15.6); WHITE BLOOD COUNT 3.5 K/mm3 (4.0-10.0)
[2022-02-17 12:44] LABS: LACTIC ACID 4.3 mmol/L (0.4-2.0)
[2022-02-17 12:47] LABS: BASO % 0.6 % (0-2.0); EOS % 0.1 % (0-4.5); HEMATOCRIT 46.7 % (32.4-45.2); HEMOGLOBIN 15.2 GM/dL (10.7-15.3); LYMPH % 24.5 % (8-40); MCH 27.3 pg (25.7-33.7); MCHC 32.5 g/dl (32.0-36.0); MEAN CELL VOLUME 83.8 fl (80-96); MEAN PLT VOLUME 8.5 fl (7.5-11.1); MONO % 7.2 % (3.8-10.2); NEUT % 67.6 % (42.8-82.8); PLATELET COUNT 152 10^3/uL (134-434); RBC 5.57 M/mm3 (3.60-5.2); RDW 14.9 % (11.6-15.6); WHITE BLOOD COUNT 3.8 K/mm3 (4.0-10.0)
[2022-02-17 13:19] LABS: BLOOD UREA NITROGEN 17.1 mg/dL (7-18); CALCIUM 9.4 mg/dL (8.5-10.1)
[2022-02-17 13:23] LABS: BILIRUBIN,TOTAL 0.4 mg/dL (0.2-1)
[2022-02-17 13:30] LABS: MAGNESIUM 1.6 mg/dL (1.8-2.4); TOT PROT 8.9 g/dl (6.4-8.2)
[2022-02-17] MEDS ORDERED: LACTATED RINGERS SOLUTION 1,000 ML/1,000 ML INFUS.BAG IV ONE (13:55)
[2022-02-17 14:00] LABS: BLOOD UREA NITROGEN 16.5 mg/dL (7-18); MAGNESIUM 1.6 mg/dL (1.8-2.4)
[2022-02-17 14:03] LABS: CREATININE 1.1 mg/dL (0.55-1.3)
[2022-02-17 14:05] LABS: BILIRUBIN,TOTAL 0.5 mg/dL (0.2-1)
[2022-02-17 14:24] LABS: ALBUMIN 2.8 g/dl (3.4-5.0); TOT PROT 8.4 g/dl (6.4-8.2)
[2022-02-17] MEDS ORDERED: MAGNESIUM SULF 50% (8.12 MEQ/2 ML-1 GM VIAL) IVPB ONE (16:03)
[2022-02-17] MEDS ORDERED: MAGNESIUM SULF 50% (8.12 MEQ/2 ML-1 GM VIAL) ONE (16:42)
[2022-02-18] MEDS ORDERED: LORazepam 1 MG TABLET PO SCH (05:00)
[2022-02-18] MEDS ORDERED: diazePAM 5 MG TABLET PO PRN (06:00)
[2022-02-18] MEDS ORDERED: methaDONE HCL 40 MG DISPERSABLE TABLET ONE (06:02)
[2022-02-18] MEDS ORDERED: methaDONE HCL 10 MG TABLET ONE (06:02)
[2022-02-18] MEDS: methaDONE 40 MG, methaDONE 30 MG PO SCH (06:26)
[2022-02-18 09:13] LABS: BASO % 0.9 % (0-2.0); EOS % 1.2 % (0-4.5); HEMATOCRIT 40.1 % (32.4-45.2); HEMOGLOBIN 12.9 GM/dL (10.7-15.3); LYMPH % 40.6 % (8-40); MCH 27.6 pg (25.7-33.7); MCHC 32.3 g/dl (32.0-36.0); MEAN CELL VOLUME 85.6 fl (80-96); MEAN PLT VOLUME 8.7 fl (7.5-11.1); MONO % 8.6 % (3.8-10.2); NEUT % 48.7 % (42.8-82.8); PLATELET COUNT 131 10^3/uL (134-434); RBC 4.68 M/mm3 (3.60-5.2); RDW 14.7 % (11.6-15.6); WHITE BLOOD COUNT 2.6 K/mm3 (4.0-10.0)
[2022-02-18] MEDS: FOLIC ACID 1 MG TABLET (FP) PO SCH (09:35)
[2022-02-18] MEDS: THIAMINE HCL 100 MG TABLET (FP) PO SCH (09:35)
[2022-02-18] MEDS: ENOXAPARIN NA (PORCINE) 40 MG/0.4 ML DISP.SYRIN SQ SCH (09:35)
[2022-02-18] MEDS: SODIUM CHLORIDE 0.45% 1,000 ML IV SCH (09:35)
[2022-02-18] MEDS: NICOTINE 7 MG/24 HOURS TOPICAL PATCH TD SCH (09:35)
[2022-02-18] MEDS: PANTOPRAZOLE SODIUM 40 MG VIAL IVPUSH SCH (09:35)
[2022-02-18] MEDS: BICTEGRAV/EMTRICIT/TENOFOV (BIKTARVY) 50-200-25 MG TABLET PO SCH (09:41)
[2022-02-18 09:42] LABS: CALCIUM 9.2 mg/dL (8.5-10.1)
[2022-02-18 09:43] LABS: ALBUMIN 2.7 g/dl (3.4-5.0); BLOOD UREA NITROGEN 24.3 mg/dL (7-18); MAGNESIUM 2.3 mg/dL (1.8-2.4)
[2022-02-18 09:46] LABS: CREATININE 0.9 mg/dL (0.55-1.3)
[2022-02-18 09:47] LABS: BILIRUBIN,TOTAL 0.4 mg/dL (0.2-1); TOT PROT 7.2 g/dl (6.4-8.2)
[2022-02-18] MEDS: POLYETHYLENE GLYCOL (HEALTHYLAX) 3350 17 GM PACKET PO SCH ×2 (13:41→21:42)
[2022-02-18 18:07] LABS: PARATHYROID HORM INTACT 122 pg/mL (15-65)
[2022-02-19] MEDS ORDERED: LORazepam 0.5 MG TABLET PO PRN
[2022-02-19] MEDS ORDERED: LORazepam 0.5 MG TABLET PO SCH (05:00)
[2022-02-19] MEDS ORDERED: diazePAM 5 MG TABLET PO PRN (06:00)
[2022-02-19] MEDS ORDERED: methaDONE HCL 40 MG DISPERSABLE TABLET ONE (06:10)
[2022-02-19] MEDS ORDERED: methaDONE HCL 10 MG TABLET ONE (06:10)
[2022-02-19] MEDS: methaDONE 40 MG, methaDONE 30 MG PO SCH (06:14)
[2022-02-19] MEDS: POLYETHYLENE GLYCOL (HEALTHYLAX) 3350 17 GM PACKET PO SCH ×3 (06:19→22:00)
[2022-02-19 07:43] LABS: ALBUMIN 2.5 g/dl (3.4-5.0); CALCIUM 9.3 mg/dL (8.5-10.1)
[2022-02-19 07:44] LABS: BLOOD UREA NITROGEN 25.1 mg/dL (7-18); MAGNESIUM 1.8 mg/dL (1.8-2.4)
[2022-02-19 07:48] LABS: BILIRUBIN,TOTAL 0.3 mg/dL (0.2-1); TOT PROT 7.2 g/dl (6.4-8.2)
[2022-02-19 07:57] LABS: BASO % 0.8 % (0-2.0); EOS % 1.5 % (0-4.5); HEMATOCRIT 42.7 % (32.4-45.2); HEMOGLOBIN 13.5 GM/dL (10.7-15.3); LYMPH % 56.5 % (8-40); MCH 27.3 pg (25.7-33.7); MCHC 31.6 g/dl (32.0-36.0); MEAN CELL VOLUME 86.4 fl (80-96); MEAN PLT VOLUME 8.7 fl (7.5-11.1); MONO % 11.1 % (3.8-10.2); NEUT % 30.1 % (42.8-82.8); PLATELET COUNT 129 10^3/uL (134-434); RBC 4.94 M/mm3 (3.60-5.2); RDW 15.1 % (11.6-15.6); WHITE BLOOD COUNT 2.3 K/mm3 (4.0-10.0)
[2022-02-19] MEDS: SODIUM CHLORIDE 0.45% 1,000 ML IV SCH (09:37)
[2022-02-19] MEDS: FOLIC ACID 1 MG TABLET (FP) PO SCH (09:38)
[2022-02-19] MEDS: THIAMINE HCL 100 MG TABLET (FP) PO SCH (09:38)
[2022-02-19] MEDS: ENOXAPARIN NA (PORCINE) 40 MG/0.4 ML DISP.SYRIN SQ SCH (09:38)
[2022-02-19] MEDS: PANTOPRAZOLE SODIUM 40 MG VIAL IVPUSH SCH (09:38)
[2022-02-19] MEDS: NICOTINE 7 MG/24 HOURS TOPICAL PATCH TD SCH (09:38)
[2022-02-19] MEDS: BICTEGRAV/EMTRICIT/TENOFOV (BIKTARVY) 50-200-25 MG TABLET PO SCH (09:38)
[2022-02-19 20:49] VITALS: BMI 16.7
[2022-02-20] MEDS ORDERED: LORazepam 0.5 MG TABLET PO ONE (05:00)
[2022-02-20] MEDS ORDERED: diazePAM 5 MG TABLET PO ONE (06:00)
[2022-02-20] MEDS ORDERED: methaDONE HCL 40 MG DISPERSABLE TABLET ONE (06:19)
[2022-02-20] MEDS ORDERED: methaDONE HCL 10 MG TABLET ONE (06:19)
[2022-02-20] MEDS: POLYETHYLENE GLYCOL (HEALTHYLAX) 3350 17 GM PACKET PO SCH ×2 (06:43→15:40)
[2022-02-20] MEDS: methaDONE 40 MG, methaDONE 30 MG PO SCH (06:44)
[2022-02-20 08:07] LABS: CARCINOEMBRYONIC ANTIGEN 2.5 ng/mL (0.0-4.7)
[2022-02-20] MEDS: FOLIC ACID 1 MG TABLET (FP) PO SCH (09:37)
[2022-02-20] MEDS: ENOXAPARIN NA (PORCINE) 40 MG/0.4 ML DISP.SYRIN SQ SCH (09:37)
[2022-02-20] MEDS: PANTOPRAZOLE SODIUM 40 MG VIAL IVPUSH SCH (09:37)
[2022-02-20] MEDS: THIAMINE HCL 100 MG TABLET (FP) PO SCH (09:37)
[2022-02-20] MEDS: BICTEGRAV/EMTRICIT/TENOFOV (BIKTARVY) 50-200-25 MG TABLET PO SCH (09:37)
[2022-02-20] MEDS: NICOTINE 7 MG/24 HOURS TOPICAL PATCH TD SCH (09:39)
[2022-02-20 10:35] VITALS: BP 139/88; PULSE 64; TEMP 98.4
== END 2022-02-20 16:48 | disposition other institution (70) | DRG 896 ==
LOC: JER 20:47 → JERBED 02-17 01:51 → J4W 02-17 21:54 → UNDODISIN 02-19 20:18
PROVIDERS: ADMIT Internal Medicine; ATTEND Nurse Practitioner Family
PROC: HZ2ZZZZ Detoxification Services for Substance Abuse Treatment (ICD-10-PCS; principal; 2022-02-17)
DX: F11.23 Opioid dependence with withdrawal (principal); K72.91 Hepatic failure, unspecified with coma; E43 Unspecified severe protein-calorie malnutrition; Z68.1 Body mass index [BMI] 19.9 or less, adult; I31.3 Pericardial effusion (noninflammatory); I16.1 Hypertensive emergency; E87.1 Hypo-osmolality and hyponatremia; Z21 Asymptomatic human immunodeficiency virus [HIV] infection status; F10.239 Alcohol dependence with withdrawal, unspecified; I12.9 Hypertensive chronic kidney disease with stage 1 through stage 4 chronic kidney disease, or unspecified chronic kidney disease; F10.220 Alcohol dependence with intoxication, uncomplicated; F32.9 Major depressive disorder, single episode, unspecified; B18.2 Chronic viral hepatitis C; K86.89 Other specified diseases of pancreas; K82.8 Other specified diseases of gallbladder; F17.200 Nicotine dependence, unspecified, uncomplicated; E83.52 Hypercalcemia; R25.2 Cramp and spasm; K83.9 Disease of biliary tract, unspecified; F12.90 Cannabis use, unspecified, uncomplicated; K76.0 Fatty (change of) liver, not elsewhere classified; N18.9 Chronic kidney disease, unspecified; R10.84 Generalized abdominal pain; N28.1 Cyst of kidney, acquired; E86.0 Dehydration; D75.1 Secondary polycythemia; R11.10 Vomiting, unspecified
CPT/HCPCS: 36415; 71045-TC-FY; 74174-TC; 74181-TC; 76705-TC; 80053; 80307; 81003; 82105; 82310; 82378; 82436; 82550; 82553; 82977; 83605; 83690; 83735; 83970; 84100; 84133; 84155; 84165; 84300; 84484; 85025; 85610; 85730; 86301; 86359; 86360; 86704; 86708; 86803; 87086; 87340; 87516; 87517; 87522; 93005; 93010; 99285-25; C9803-CS; J0735; U0003; U0005

== ENCOUNTER 2022-02-20 16:46 | Inpatient (IN) | payer OTHER ==
[2022-02-20] MEDS ORDERED: LOPERAMIDE HCL 2 MG CAPSULE PO PRN (18:09)
[2022-02-20] MEDS ORDERED: MENTHOL/PHENOL 1 EACH UD MM PRN (18:09)
[2022-02-20] MEDS ORDERED: MAGNESIUM CITRATE 300 ML BOTTLE PO PRN (18:09)
[2022-02-20] MEDS ORDERED: P-EPHED 60MG/TRIPROLIDI 2.5MG TABLET PO PRN (18:09)
[2022-02-20] MEDS ORDERED: IBUPROFEN 400 MG TABLET (FP) PO PRN (18:09)
[2022-02-20] MEDS ORDERED: MAG HYDROX/AL HYDROX/SIMETH 30 ML UNIT-DOSE CUP PO PRN (18:09)
[2022-02-20] MEDS ORDERED: guaiFENesin 200 MG/10 ML 10 ML UNIT-DOSE CUPS PO PRN (18:09)
[2022-02-20] MEDS ORDERED: MAGNESIUM HYDROX 2400MG/30ML ORAL SUSPENSION 30 ML CUP PO PRN (18:09)
[2022-02-20] MEDS ORDERED: MELATONIN 5 MG TABLETS PO PRN (18:09)
[2022-02-20] MEDS: THIAMINE HCL 100 MG TABLET (FP) PO SCH (23:02)
[2022-02-20] MEDS: BACITRACIN/POLYMYXIN B SULFATE 15 GM TUBE TP SCH (23:42)
[2022-02-20] MEDS: DOCUSATE SODIUM 100 MG CAPSULE (FP) PO SCH (23:44)
[2022-02-21] MEDS ORDERED: methaDONE HCL 40 MG DISPERSABLE TABLET PO SCH (06:00)
[2022-02-21] MEDS: methaDONE 40 MG, methaDONE 30 MG PO SCH (06:51)
[2022-02-21] MEDS ORDERED: methaDONE HCL 10 MG TABLET ONE (06:51)
[2022-02-21] MEDS ORDERED: methaDONE HCL 40 MG DISPERSABLE TABLET ONE (06:51)
[2022-02-21] MEDS: FOLIC ACID 1 MG TABLET (FP) PO SCH (10:54)
[2022-02-21] MEDS: BICTEGRAV/EMTRICIT/TENOFOV (BIKTARVY) 50-200-25 MG TABLET PO SCH (10:54)
[2022-02-21] MEDS: PRENATAL VITAMINS W/ FOLIC ACID TABLET (FP) PO SCH (10:54)
[2022-02-21] MEDS: BACITRACIN/POLYMYXIN B SULFATE 15 GM TUBE TP SCH ×2 (10:55→21:24)
[2022-02-21] MEDS: DOCUSATE SODIUM 100 MG CAPSULE (FP) PO SCH (21:24)
[2022-02-21] MEDS: THIAMINE HCL 100 MG TABLET (FP) PO SCH (21:24)
[2022-02-22] MEDS ORDERED: methaDONE HCL 10 MG TABLET ONE (09:35)
[2022-02-22] MEDS ORDERED: methaDONE HCL 40 MG DISPERSABLE TABLET ONE (09:36)
[2022-02-22] MEDS: FOLIC ACID 1 MG TABLET (FP) PO SCH (11:09)
[2022-02-22] MEDS: BICTEGRAV/EMTRICIT/TENOFOV (BIKTARVY) 50-200-25 MG TABLET PO SCH (11:09)
[2022-02-22] MEDS: PRENATAL VITAMINS W/ FOLIC ACID TABLET (FP) PO SCH (11:09)
[2022-02-22] MEDS: BACITRACIN/POLYMYXIN B SULFATE 15 GM TUBE TP SCH ×2 (11:10→21:37)
[2022-02-22] MEDS: methaDONE 40 MG, methaDONE 30 MG PO SCH (11:10)
[2022-02-22] MEDS: DOCUSATE SODIUM 100 MG CAPSULE (FP) PO SCH (21:36)
[2022-02-22] MEDS: THIAMINE HCL 100 MG TABLET (FP) PO SCH (21:37)
[2022-02-23] MEDS ORDERED: methaDONE HCL 40 MG DISPERSABLE TABLET ONE (04:20)
[2022-02-23] MEDS ORDERED: methaDONE HCL 10 MG TABLET ONE (04:20)
[2022-02-23] MEDS: methaDONE 40 MG, methaDONE 30 MG PO SCH (06:59)
[2022-02-23] MEDS: BACITRACIN/POLYMYXIN B SULFATE 15 GM TUBE TP SCH ×2 (10:44→22:01)
[2022-02-23] MEDS: BICTEGRAV/EMTRICIT/TENOFOV (BIKTARVY) 50-200-25 MG TABLET PO SCH (10:44)
[2022-02-23] MEDS: FOLIC ACID 1 MG TABLET (FP) PO SCH (10:44)
[2022-02-23] MEDS: PRENATAL VITAMINS W/ FOLIC ACID TABLET (FP) PO SCH (10:44)
[2022-02-23] MEDS: DOCUSATE SODIUM 100 MG CAPSULE (FP) PO SCH (22:01)
[2022-02-23] MEDS: THIAMINE HCL 100 MG TABLET (FP) PO SCH (22:01)
[2022-02-24] MEDS ORDERED: methaDONE HCL 40 MG DISPERSABLE TABLET ONE (03:49)
[2022-02-24] MEDS ORDERED: methaDONE HCL 10 MG TABLET ONE (03:49)
[2022-02-24] MEDS: methaDONE 40 MG, methaDONE 30 MG PO SCH (07:10)
[2022-02-24] MEDS: FOLIC ACID 1 MG TABLET (FP) PO SCH (10:25)
[2022-02-24] MEDS: BICTEGRAV/EMTRICIT/TENOFOV (BIKTARVY) 50-200-25 MG TABLET PO SCH (10:25)
[2022-02-24] MEDS: PRENATAL VITAMINS W/ FOLIC ACID TABLET (FP) PO SCH (10:25)
[2022-02-24] MEDS: BACITRACIN/POLYMYXIN B SULFATE 15 GM TUBE TP SCH ×2 (10:25→21:19)
[2022-02-24] MEDS ORDERED: BACITRACIN 0.9 GM PACKET TP SCH (11:30)
[2022-02-24] MEDS: TOLNAFTATE 1% CREAM 15 GM TUBE TP SCH ×2 (13:13→21:18)
[2022-02-24] MEDS ORDERED: COLLOIDAL OATMEAL 1 BAR EACH TP PRN (13:18)
[2022-02-24] MEDS ORDERED: AMMONIUM LACTATE 12% LOTION 225 GM BOTTLE TP PRN (13:19)
[2022-02-24] MEDS: ACETAMINOPHEN 325 MG TABLET (FP) PO PRN (14:47)
[2022-02-24] MEDS: MINERAL OIL/PETROLAT/WATER TOPICAL CREAM 113 GM JAR TP SCH (14:49)
[2022-02-24] MEDS: DOCUSATE SODIUM 100 MG CAPSULE (FP) PO SCH (21:14)
[2022-02-24] MEDS: THIAMINE HCL 100 MG TABLET (FP) PO SCH (21:15)
[2022-02-25] MEDS ORDERED: methaDONE HCL 40 MG DISPERSABLE TABLET ONE ×2 (04:45→10:53)
[2022-02-25] MEDS ORDERED: methaDONE HCL 10 MG TABLET ONE ×2 (04:45→10:53)
[2022-02-25] MEDS: methaDONE 40 MG, methaDONE 30 MG PO SCH (10:53)
[2022-02-25] MEDS: FOLIC ACID 1 MG TABLET (FP) PO SCH (10:55)
[2022-02-25] MEDS: PRENATAL VITAMINS W/ FOLIC ACID TABLET (FP) PO SCH (10:55)
[2022-02-25] MEDS: BICTEGRAV/EMTRICIT/TENOFOV (BIKTARVY) 50-200-25 MG TABLET PO SCH (10:55)
[2022-02-25] MEDS: MINERAL OIL/PETROLAT/WATER TOPICAL CREAM 113 GM JAR TP SCH (10:56)
[2022-02-25] MEDS: TOLNAFTATE 1% CREAM 15 GM TUBE TP SCH ×2 (10:56→21:14)
[2022-02-25] MEDS: BACITRACIN/POLYMYXIN B SULFATE 15 GM TUBE TP SCH ×2 (10:56→21:14)
[2022-02-25] MEDS: DOCUSATE SODIUM 100 MG CAPSULE (FP) PO SCH (21:11)
[2022-02-25] MEDS: THIAMINE HCL 100 MG TABLET (FP) PO SCH (21:11)
[2022-02-26] MEDS ORDERED: methaDONE HCL 10 MG TABLET ONE (09:12)
[2022-02-26] MEDS ORDERED: methaDONE HCL 40 MG DISPERSABLE TABLET ONE (09:12)
[2022-02-26] MEDS: PRENATAL VITAMINS W/ FOLIC ACID TABLET (FP) PO SCH (10:51)
[2022-02-26] MEDS: FOLIC ACID 1 MG TABLET (FP) PO SCH (10:51)
[2022-02-26] MEDS: BICTEGRAV/EMTRICIT/TENOFOV (BIKTARVY) 50-200-25 MG TABLET PO SCH (10:51)
[2022-02-26] MEDS: methaDONE 40 MG, methaDONE 30 MG PO SCH (10:52)
[2022-02-26] MEDS: BACITRACIN/POLYMYXIN B SULFATE 15 GM TUBE TP SCH ×2 (10:53→21:06)
[2022-02-26] MEDS: TOLNAFTATE 1% CREAM 15 GM TUBE TP SCH ×2 (10:54→21:06)
[2022-02-26] MEDS: MINERAL OIL/PETROLAT/WATER TOPICAL CREAM 113 GM JAR TP SCH (10:55)
[2022-02-26] MEDS: THIAMINE HCL 100 MG TABLET (FP) PO SCH (21:05)
[2022-02-26] MEDS: DOCUSATE SODIUM 100 MG CAPSULE (FP) PO SCH (21:06)
[2022-02-27] MEDS ORDERED: methaDONE HCL 40 MG DISPERSABLE TABLET ONE (08:31)
[2022-02-27] MEDS ORDERED: methaDONE HCL 10 MG TABLET ONE (08:31)
[2022-02-27] MEDS: BICTEGRAV/EMTRICIT/TENOFOV (BIKTARVY) 50-200-25 MG TABLET PO SCH (10:59)
[2022-02-27] MEDS: methaDONE 40 MG, methaDONE 30 MG PO SCH (10:59)
[2022-02-27] MEDS: FOLIC ACID 1 MG TABLET (FP) PO SCH (11:00)
[2022-02-27] MEDS: PRENATAL VITAMINS W/ FOLIC ACID TABLET (FP) PO SCH (11:00)
[2022-02-27] MEDS: BACITRACIN/POLYMYXIN B SULFATE 15 GM TUBE TP SCH ×2 (11:01→21:26)
[2022-02-27] MEDS: MINERAL OIL/PETROLAT/WATER TOPICAL CREAM 113 GM JAR TP SCH (11:04)
[2022-02-27] MEDS: TOLNAFTATE 1% CREAM 15 GM TUBE TP SCH ×2 (11:04→21:25)
[2022-02-27] MEDS: DOCUSATE SODIUM 100 MG CAPSULE (FP) PO SCH (21:24)
[2022-02-27] MEDS: THIAMINE HCL 100 MG TABLET (FP) PO SCH (21:26)
[2022-02-28] MEDS ORDERED: methaDONE HCL 10 MG TABLET ONE (09:18)
[2022-02-28] MEDS ORDERED: methaDONE HCL 40 MG DISPERSABLE TABLET ONE (09:18)
[2022-02-28] MEDS: FOLIC ACID 1 MG TABLET (FP) PO SCH (11:01)
[2022-02-28] MEDS: PRENATAL VITAMINS W/ FOLIC ACID TABLET (FP) PO SCH (11:01)
[2022-02-28] MEDS: BICTEGRAV/EMTRICIT/TENOFOV (BIKTARVY) 50-200-25 MG TABLET PO SCH (11:01)
[2022-02-28] MEDS: methaDONE 40 MG, methaDONE 30 MG PO SCH (11:02)
[2022-02-28] MEDS: BACITRACIN/POLYMYXIN B SULFATE 15 GM TUBE TP SCH ×2 (11:04→21:04)
[2022-02-28] MEDS: TOLNAFTATE 1% CREAM 15 GM TUBE TP SCH ×2 (11:04→21:04)
[2022-02-28] MEDS: MINERAL OIL/PETROLAT/WATER TOPICAL CREAM 113 GM JAR TP SCH (11:04)
[2022-02-28] MEDS: ACETAMINOPHEN 325 MG TABLET (FP) PO PRN (14:44)
[2022-02-28] MEDS: THIAMINE HCL 100 MG TABLET (FP) PO SCH (21:03)
[2022-02-28] MEDS: DOCUSATE SODIUM 100 MG CAPSULE (FP) PO SCH (21:04)
[2022-03-01] MEDS ORDERED: methaDONE HCL 40 MG DISPERSABLE TABLET ONE (09:28)
[2022-03-01] MEDS ORDERED: methaDONE HCL 10 MG TABLET ONE (09:28)
[2022-03-01] MEDS: methaDONE 40 MG, methaDONE 30 MG PO SCH (11:07)
[2022-03-01] MEDS: PRENATAL VITAMINS W/ FOLIC ACID TABLET (FP) PO SCH (11:07)
[2022-03-01] MEDS: BICTEGRAV/EMTRICIT/TENOFOV (BIKTARVY) 50-200-25 MG TABLET PO SCH (11:07)
[2022-03-01] MEDS: FOLIC ACID 1 MG TABLET (FP) PO SCH (11:07)
[2022-03-01] MEDS: TOLNAFTATE 1% CREAM 15 GM TUBE TP SCH ×2 (11:09→22:03)
[2022-03-01] MEDS: BACITRACIN/POLYMYXIN B SULFATE 15 GM TUBE TP SCH ×2 (11:09→22:03)
[2022-03-01] MEDS: MINERAL OIL/PETROLAT/WATER TOPICAL CREAM 113 GM JAR TP SCH (11:11)
[2022-03-01] MEDS: DOCUSATE SODIUM 100 MG CAPSULE (FP) PO SCH (22:03)
[2022-03-01] MEDS: THIAMINE HCL 100 MG TABLET (FP) PO SCH (22:03)
[2022-03-02] MEDS ORDERED: methaDONE HCL 40 MG DISPERSABLE TABLET ONE (09:18)
[2022-03-02] MEDS ORDERED: methaDONE HCL 10 MG TABLET ONE (09:18)
[2022-03-02] MEDS: PRENATAL VITAMINS W/ FOLIC ACID TABLET (FP) PO SCH (09:51)
[2022-03-02] MEDS: FOLIC ACID 1 MG TABLET (FP) PO SCH (09:51)
[2022-03-02] MEDS: BICTEGRAV/EMTRICIT/TENOFOV (BIKTARVY) 50-200-25 MG TABLET PO SCH (09:51)
[2022-03-02] MEDS: methaDONE 40 MG, methaDONE 30 MG PO SCH (09:51)
[2022-03-02] MEDS: TOLNAFTATE 1% CREAM 15 GM TUBE TP SCH ×2 (09:52→22:15)
[2022-03-02] MEDS: BACITRACIN/POLYMYXIN B SULFATE 15 GM TUBE TP SCH ×2 (09:52→22:14)
[2022-03-02] MEDS: MINERAL OIL/PETROLAT/WATER TOPICAL CREAM 113 GM JAR TP SCH (09:52)
[2022-03-02] MEDS: DOCUSATE SODIUM 100 MG CAPSULE (FP) PO SCH (22:14)
[2022-03-02] MEDS: THIAMINE HCL 100 MG TABLET (FP) PO SCH (22:15)
[2022-03-03] MEDS ORDERED: methaDONE HCL 10 MG TABLET ONE (09:31)
[2022-03-03] MEDS ORDERED: methaDONE HCL 40 MG DISPERSABLE TABLET ONE (09:31)
[2022-03-03] MEDS: methaDONE 40 MG, methaDONE 30 MG PO SCH (11:07)
[2022-03-03] MEDS: BICTEGRAV/EMTRICIT/TENOFOV (BIKTARVY) 50-200-25 MG TABLET PO SCH (11:08)
[2022-03-03] MEDS: FOLIC ACID 1 MG TABLET (FP) PO SCH (11:08)
[2022-03-03] MEDS: BACITRACIN/POLYMYXIN B SULFATE 15 GM TUBE TP SCH ×2 (11:08→22:08)
[2022-03-03] MEDS: PRENATAL VITAMINS W/ FOLIC ACID TABLET (FP) PO SCH (11:08)
[2022-03-03] MEDS: MINERAL OIL/PETROLAT/WATER TOPICAL CREAM 113 GM JAR TP SCH (11:09)
[2022-03-03] MEDS: TOLNAFTATE 1% CREAM 15 GM TUBE TP SCH ×2 (11:09→22:08)
[2022-03-03] MEDS ORDERED: DOCUSATE SODIUM 100 MG CAPSULE (FP) PO PRN (14:55)
[2022-03-03] MEDS: THIAMINE HCL 100 MG TABLET (FP) PO SCH (22:09)
[2022-03-04] MEDS: BICTEGRAV/EMTRICIT/TENOFOV (BIKTARVY) 50-200-25 MG TABLET PO SCH (11:17)
[2022-03-04] MEDS: FOLIC ACID 1 MG TABLET (FP) PO SCH (11:17)
[2022-03-04] MEDS: PRENATAL VITAMINS W/ FOLIC ACID TABLET (FP) PO SCH (11:17)
[2022-03-04] MEDS: MINERAL OIL/PETROLAT/WATER TOPICAL CREAM 113 GM JAR TP SCH (11:18)
[2022-03-04] MEDS: BACITRACIN/POLYMYXIN B SULFATE 15 GM TUBE TP SCH ×2 (11:18→21:40)
[2022-03-04] MEDS: methaDONE 40 MG, methaDONE 30 MG PO SCH (11:19)
[2022-03-04] MEDS ORDERED: methaDONE HCL 10 MG TABLET ONE (11:19)
[2022-03-04] MEDS ORDERED: methaDONE HCL 40 MG DISPERSABLE TABLET ONE (11:19)
[2022-03-04] MEDS: TOLNAFTATE 1% CREAM 15 GM TUBE TP SCH ×2 (11:21→21:40)
[2022-03-04] MEDS: ACETAMINOPHEN 325 MG TABLET (FP) PO PRN (13:55)
[2022-03-04] MEDS: THIAMINE HCL 100 MG TABLET (FP) PO SCH (21:40)
[2022-03-05] MEDS ORDERED: methaDONE HCL 10 MG TABLET ONE (09:16)
[2022-03-05] MEDS ORDERED: methaDONE HCL 40 MG DISPERSABLE TABLET ONE (09:16)
[2022-03-05] MEDS: FOLIC ACID 1 MG TABLET (FP) PO SCH (10:44)
[2022-03-05] MEDS: PRENATAL VITAMINS W/ FOLIC ACID TABLET (FP) PO SCH (10:44)
[2022-03-05] MEDS: BICTEGRAV/EMTRICIT/TENOFOV (BIKTARVY) 50-200-25 MG TABLET PO SCH (10:44)
[2022-03-05] MEDS: BACITRACIN/POLYMYXIN B SULFATE 15 GM TUBE TP SCH ×2 (10:44→21:17)
[2022-03-05] MEDS: methaDONE 40 MG, methaDONE 30 MG PO SCH (10:45)
[2022-03-05] MEDS: MINERAL OIL/PETROLAT/WATER TOPICAL CREAM 113 GM JAR TP SCH (10:47)
[2022-03-05] MEDS: TOLNAFTATE 1% CREAM 15 GM TUBE TP SCH ×2 (10:47→21:17)
[2022-03-05] MEDS: THIAMINE HCL 100 MG TABLET (FP) PO SCH (21:17)
[2022-03-06] MEDS ORDERED: methaDONE HCL 10 MG TABLET ONE (09:43)
[2022-03-06] MEDS ORDERED: methaDONE HCL 40 MG DISPERSABLE TABLET ONE (09:44)
[2022-03-06] MEDS: BICTEGRAV/EMTRICIT/TENOFOV (BIKTARVY) 50-200-25 MG TABLET PO SCH (11:04)
[2022-03-06] MEDS: FOLIC ACID 1 MG TABLET (FP) PO SCH (11:04)
[2022-03-06] MEDS: PRENATAL VITAMINS W/ FOLIC ACID TABLET (FP) PO SCH (11:05)
[2022-03-06] MEDS: methaDONE 40 MG, methaDONE 30 MG PO SCH (11:05)
[2022-03-06] MEDS: MINERAL OIL/PETROLAT/WATER TOPICAL CREAM 113 GM JAR TP SCH (11:05)
[2022-03-06] MEDS: BACITRACIN/POLYMYXIN B SULFATE 15 GM TUBE TP SCH ×2 (11:07→21:54)
[2022-03-06] MEDS: TOLNAFTATE 1% CREAM 15 GM TUBE TP SCH ×2 (11:07→21:54)
[2022-03-06] MEDS: THIAMINE HCL 100 MG TABLET (FP) PO SCH (21:53)
[2022-03-07] MEDS ORDERED: methaDONE HCL 10 MG TABLET ONE (09:37)
[2022-03-07] MEDS ORDERED: methaDONE HCL 40 MG DISPERSABLE TABLET ONE (09:38)
[2022-03-07] MEDS: PRENATAL VITAMINS W/ FOLIC ACID TABLET (FP) PO SCH (09:53)
[2022-03-07] MEDS: methaDONE 40 MG, methaDONE 30 MG PO SCH (09:54)
[2022-03-07] MEDS: FOLIC ACID 1 MG TABLET (FP) PO SCH (09:55)
[2022-03-07] MEDS: BICTEGRAV/EMTRICIT/TENOFOV (BIKTARVY) 50-200-25 MG TABLET PO SCH (09:55)
[2022-03-07] MEDS: BACITRACIN/POLYMYXIN B SULFATE 15 GM TUBE TP SCH ×2 (13:04→22:48)
[2022-03-07] MEDS: MINERAL OIL/PETROLAT/WATER TOPICAL CREAM 113 GM JAR TP SCH (13:04)
[2022-03-07] MEDS: TOLNAFTATE 1% CREAM 15 GM TUBE TP SCH ×2 (13:06→22:48)
[2022-03-07] MEDS: ARTIFICIAL TEARS (POLYVINYL ALCOHOL) OPTH DROPS OU SCH ×2 (15:40→22:48)
[2022-03-07] MEDS: VITAMINS A AND D TOPICAL OINTMENT 60 GM TUBE TP SCH (15:43)
[2022-03-07] MEDS: CYPROHEPTADINE HCL 4 MG TABLET PO SCH (15:43)
[2022-03-07] MEDS: THIAMINE HCL 100 MG TABLET (FP) PO SCH (22:49)
[2022-03-08] MEDS ORDERED: methaDONE HCL 40 MG DISPERSABLE TABLET ONE (09:31)
[2022-03-08] MEDS ORDERED: methaDONE HCL 10 MG TABLET ONE (09:31)
[2022-03-08] MEDS: PRENATAL VITAMINS W/ FOLIC ACID TABLET (FP) PO SCH (11:23)
[2022-03-08] MEDS: BICTEGRAV/EMTRICIT/TENOFOV (BIKTARVY) 50-200-25 MG TABLET PO SCH (11:24)
[2022-03-08] MEDS: ARTIFICIAL TEARS (POLYVINYL ALCOHOL) OPTH DROPS OU SCH ×2 (11:24→22:18)
[2022-03-08] MEDS: FOLIC ACID 1 MG TABLET (FP) PO SCH (11:24)
[2022-03-08] MEDS: TOLNAFTATE 1% CREAM 15 GM TUBE TP SCH ×2 (11:25→22:18)
[2022-03-08] MEDS: BACITRACIN/POLYMYXIN B SULFATE 15 GM TUBE TP SCH ×2 (11:25→22:18)
[2022-03-08] MEDS: CYPROHEPTADINE HCL 4 MG TABLET PO SCH (11:25)
[2022-03-08] MEDS: methaDONE 40 MG, methaDONE 30 MG PO SCH (11:26)
[2022-03-08] MEDS: MINERAL OIL/PETROLAT/WATER TOPICAL CREAM 113 GM JAR TP SCH (11:28)
[2022-03-08] MEDS: VITAMINS A AND D TOPICAL OINTMENT 60 GM TUBE TP SCH (11:29)
[2022-03-08] MEDS: THIAMINE HCL 100 MG TABLET (FP) PO SCH (22:18)
[2022-03-09] MEDS ORDERED: methaDONE HCL 40 MG DISPERSABLE TABLET ONE (09:24)
[2022-03-09] MEDS ORDERED: methaDONE HCL 10 MG TABLET ONE (09:24)
[2022-03-09] MEDS: FOLIC ACID 1 MG TABLET (FP) PO SCH (11:16)
[2022-03-09] MEDS: BICTEGRAV/EMTRICIT/TENOFOV (BIKTARVY) 50-200-25 MG TABLET PO SCH (11:16)
[2022-03-09] MEDS: PRENATAL VITAMINS W/ FOLIC ACID TABLET (FP) PO SCH (11:16)
[2022-03-09] MEDS: ARTIFICIAL TEARS (POLYVINYL ALCOHOL) OPTH DROPS OU SCH ×2 (11:16→21:03)
[2022-03-09] MEDS: BACITRACIN/POLYMYXIN B SULFATE 15 GM TUBE TP SCH ×2 (11:17→21:03)
[2022-03-09] MEDS: VITAMINS A AND D TOPICAL OINTMENT 60 GM TUBE TP SCH (11:17)
[2022-03-09] MEDS: MINERAL OIL/PETROLAT/WATER TOPICAL CREAM 113 GM JAR TP SCH (11:17)
[2022-03-09] MEDS: CYPROHEPTADINE HCL 4 MG TABLET PO SCH (11:17)
[2022-03-09] MEDS: TOLNAFTATE 1% CREAM 15 GM TUBE TP SCH ×2 (11:17→21:03)
[2022-03-09] MEDS: methaDONE 40 MG, methaDONE 30 MG PO SCH (11:18)
[2022-03-09] MEDS: THIAMINE HCL 100 MG TABLET (FP) PO SCH (21:04)
[2022-03-10] MEDS ORDERED: methaDONE HCL 40 MG DISPERSABLE TABLET ONE (09:27)
[2022-03-10] MEDS ORDERED: methaDONE HCL 10 MG TABLET ONE (09:27)
[2022-03-10] MEDS: ARTIFICIAL TEARS (POLYVINYL ALCOHOL) OPTH DROPS OU SCH ×2 (10:58→21:50)
[2022-03-10] MEDS: MINERAL OIL/PETROLAT/WATER TOPICAL CREAM 113 GM JAR TP SCH (10:58)
[2022-03-10] MEDS: FOLIC ACID 1 MG TABLET (FP) PO SCH (10:58)
[2022-03-10] MEDS: CYPROHEPTADINE HCL 4 MG TABLET PO SCH (10:58)
[2022-03-10] MEDS: BICTEGRAV/EMTRICIT/TENOFOV (BIKTARVY) 50-200-25 MG TABLET PO SCH (10:58)
[2022-03-10] MEDS: methaDONE 40 MG, methaDONE 30 MG PO SCH (10:59)
[2022-03-10] MEDS: PRENATAL VITAMINS W/ FOLIC ACID TABLET (FP) PO SCH (11:02)
[2022-03-10] MEDS: TOLNAFTATE 1% CREAM 15 GM TUBE TP SCH ×2 (11:02→21:50)
[2022-03-10] MEDS: VITAMINS A AND D TOPICAL OINTMENT 60 GM TUBE TP SCH (11:02)
[2022-03-10] MEDS: BACITRACIN/POLYMYXIN B SULFATE 15 GM TUBE TP SCH ×2 (11:02→21:50)
[2022-03-10 11:30] LABS: MCH 28.1 pg (25.7-33.7); MCHC 31.8 g/dl (32.0-36.0); MEAN CELL VOLUME 88.4 fl (80-96); MEAN PLT VOLUME 9.1 fl (7.5-11.1); PLATELET COUNT 148 10^3/uL (134-434); RBC 4.98 M/mm3 (3.60-5.2); RDW 15.8 % (11.6-15.6); WHITE BLOOD COUNT 2.5 K/mm3 (4.0-10.0)
[2022-03-10 11:52] LABS: ALBUMIN 3.2 g/dl (3.4-5.0); CALCIUM 10.8 mg/dL (8.5-10.1)
[2022-03-10 11:53] LABS: BLOOD UREA NITROGEN 33.1 mg/dL (7-18)
[2022-03-10 11:57] LABS: BILIRUBIN,TOTAL 0.4 mg/dL (0.2-1); TOT PROT 8.6 g/dl (6.4-8.2)
[2022-03-10] MEDS: THIAMINE HCL 100 MG TABLET (FP) PO SCH (21:48)
[2022-03-11] MEDS ORDERED: methaDONE HCL 40 MG DISPERSABLE TABLET ONE (09:24)
[2022-03-11] MEDS ORDERED: methaDONE HCL 10 MG TABLET ONE (09:24)
[2022-03-11] MEDS: BACITRACIN/POLYMYXIN B SULFATE 15 GM TUBE TP SCH ×2 (10:40→21:02)
[2022-03-11] MEDS: PRENATAL VITAMINS W/ FOLIC ACID TABLET (FP) PO SCH (10:40)
[2022-03-11] MEDS: CYPROHEPTADINE HCL 4 MG TABLET PO SCH (10:40)
[2022-03-11] MEDS: FOLIC ACID 1 MG TABLET (FP) PO SCH (10:41)
[2022-03-11] MEDS: BICTEGRAV/EMTRICIT/TENOFOV (BIKTARVY) 50-200-25 MG TABLET PO SCH (10:41)
[2022-03-11] MEDS: ARTIFICIAL TEARS (POLYVINYL ALCOHOL) OPTH DROPS OU SCH ×2 (10:41→21:02)
[2022-03-11] MEDS: methaDONE 40 MG, methaDONE 30 MG PO SCH (10:45)
[2022-03-11] MEDS: TOLNAFTATE 1% CREAM 15 GM TUBE TP SCH ×2 (10:46→21:02)
[2022-03-11] MEDS: MINERAL OIL/PETROLAT/WATER TOPICAL CREAM 113 GM JAR TP SCH (10:46)
[2022-03-11] MEDS: VITAMINS A AND D TOPICAL OINTMENT 60 GM TUBE TP SCH (10:46)
[2022-03-11] MEDS ORDERED: SODIUM PHOSPHATE/NA BIPHOS 133 ML ENEMA RC ONE (12:36)
[2022-03-11] MEDS: THIAMINE HCL 100 MG TABLET (FP) PO SCH (21:02)
[2022-03-12] MEDS ORDERED: methaDONE HCL 40 MG DISPERSABLE TABLET ONE (09:24)
[2022-03-12] MEDS ORDERED: methaDONE HCL 10 MG TABLET ONE (09:24)
[2022-03-12] MEDS: BACITRACIN/POLYMYXIN B SULFATE 15 GM TUBE TP SCH ×2 (10:44→22:02)
[2022-03-12] MEDS: BICTEGRAV/EMTRICIT/TENOFOV (BIKTARVY) 50-200-25 MG TABLET PO SCH (10:44)
[2022-03-12] MEDS: PRENATAL VITAMINS W/ FOLIC ACID TABLET (FP) PO SCH (10:44)
[2022-03-12] MEDS: FOLIC ACID 1 MG TABLET (FP) PO SCH (10:44)
[2022-03-12] MEDS: CYPROHEPTADINE HCL 4 MG TABLET PO SCH (10:45)
[2022-03-12] MEDS: ARTIFICIAL TEARS (POLYVINYL ALCOHOL) OPTH DROPS OU SCH (10:45)
[2022-03-12] MEDS: methaDONE 40 MG, methaDONE 30 MG PO SCH (10:46)
[2022-03-12] MEDS: VITAMINS A AND D TOPICAL OINTMENT 60 GM TUBE TP SCH (10:51)
[2022-03-12] MEDS: MINERAL OIL/PETROLAT/WATER TOPICAL CREAM 113 GM JAR TP SCH (10:51)
[2022-03-12] MEDS: TOLNAFTATE 1% CREAM 15 GM TUBE TP SCH ×2 (10:52→22:02)
[2022-03-12] MEDS: THIAMINE HCL 100 MG TABLET (FP) PO SCH (21:14)
[2022-03-13 07:57] VITALS: BP 119/79; PULSE 71; TEMP 98
[2022-03-13] MEDS ORDERED: methaDONE HCL 10 MG TABLET ONE (09:45)
[2022-03-13] MEDS ORDERED: methaDONE HCL 40 MG DISPERSABLE TABLET ONE (09:46)
[2022-03-13] MEDS: methaDONE 40 MG, methaDONE 30 MG PO SCH (10:14)
[2022-03-13] MEDS: TOLNAFTATE 1% CREAM 15 GM TUBE TP SCH (10:15)
[2022-03-13] MEDS: BICTEGRAV/EMTRICIT/TENOFOV (BIKTARVY) 50-200-25 MG TABLET PO SCH (10:15)
[2022-03-13] MEDS: PRENATAL VITAMINS W/ FOLIC ACID TABLET (FP) PO SCH (10:15)
[2022-03-13] MEDS: FOLIC ACID 1 MG TABLET (FP) PO SCH (10:15)
[2022-03-13] MEDS: VITAMINS A AND D TOPICAL OINTMENT 60 GM TUBE TP SCH (10:18)
[2022-03-13] MEDS: CYPROHEPTADINE HCL 4 MG TABLET PO SCH (10:18)
[2022-03-13] MEDS: BACITRACIN/POLYMYXIN B SULFATE 15 GM TUBE TP SCH (10:18)
[2022-03-13] MEDS: MINERAL OIL/PETROLAT/WATER TOPICAL CREAM 113 GM JAR TP SCH (10:19)
== END 2022-03-13 10:30 | disposition home or self-care (01) | DRG 897 ==
LOC: YASAS 16:46 → Y5N 20:10
PROVIDERS: ADMIT Allergy & Immunology; ATTEND Allergy & Immunology
PROC: HZ2ZZZZ Detoxification Services for Substance Abuse Treatment (ICD-10-PCS; principal; 2022-02-20)
DX: F10.20 Alcohol dependence, uncomplicated (principal); F11.20 Opioid dependence, uncomplicated; F14.20 Cocaine dependence, uncomplicated; Z68.1 Body mass index [BMI] 19.9 or less, adult; F17.210 Nicotine dependence, cigarettes, uncomplicated; F32.A Depression, unspecified; Z21 Asymptomatic human immunodeficiency virus [HIV] infection status; I10 Essential (primary) hypertension; K59.04 Chronic idiopathic constipation; H04.321 Acute dacryocystitis of right lacrimal passage; R63.4 Abnormal weight loss; Z99.89 Dependence on other enabling machines and devices; Z88.2 Allergy status to sulfonamides; Z88.8 Allergy status to other drugs, medicaments and biological substances
CPT/HCPCS: 36415; 80053; 85027; C9803-CS; U0003; U0005

== ENCOUNTER 2022-05-28 13:17 | Inpatient (IN) | payer OTHER ==
[2022-05-28 14:22] VITALS: BMI 16.2
[2022-05-28] MEDS ORDERED: IBUPROFEN 400 MG TABLET (FP) PO PRN (15:10)
[2022-05-28] MEDS ORDERED: MAGNESIUM HYDROX 2400MG/30ML ORAL SUSPENSION 30 ML CUP PO PRN (15:10)
[2022-05-28] MEDS ORDERED: BENZOCAINE/MENTHOL (CHLORASEPTIC ) LOZENGE MM PRN (15:10)
[2022-05-28] MEDS ORDERED: NICOTINE 10 MG CARTRIDGE (INHALER) IH PRN (15:10)
[2022-05-28] MEDS ORDERED: ONDANSETRON *ODT* 4 MG TABLET SL PRN (15:10)
[2022-05-28] MEDS ORDERED: ACETAMINOPHEN 325 MG TABLET (FP) PO PRN ×2 (15:10)
[2022-05-28] MEDS ORDERED: MAG HYDROX/AL HYDROX/SIMETH 30 ML UNIT-DOSE CUP PO PRN (15:10)
[2022-05-28] MEDS ORDERED: IBUPROFEN 600 MG TABLET (FP) PO PRN (15:10)
[2022-05-28] MEDS ORDERED: LOPERAMIDE HCL 2 MG CAPSULE PO PRN (15:10)
[2022-05-28] MEDS ORDERED: MAGNESIUM CITRATE 300 ML BOTTLE PO PRN (15:10)
[2022-05-28] MEDS ORDERED: BISMUTH SUBSALICYLATE 524 MG/30 ML PO PRN (15:10)
[2022-05-28] MEDS ORDERED: DICYCLOMINE HCL 10 MG CAPSULE PO PRN (15:10)
[2022-05-28] MEDS ORDERED: cloNIDine HCL 0.1 MG TABLET PO PRN (15:10)
[2022-05-28] MEDS ORDERED: PRENATAL VITAMINS W/ FOLIC ACID TABLET (FP) PO SCH (15:15)
[2022-05-28] MEDS: DOXYCYCLINE HYCLATE 100 MG TABLET PO SCH (17:17)
[2022-05-28] MEDS: hydrOXYzine PAMOATE 25 MG CAPSULE (FP) PO SCH ×2 (17:17→22:35)
[2022-05-28] MEDS: BICTEGRAV/EMTRICIT/TENOFOV (BIKTARVY) 50-200-25 MG TABLET PO SCH (17:17)
[2022-05-28] MEDS ORDERED: methaDONE HCL 10 MG TABLET (FOR DETOX USE ONLY) PO ONE (19:10)
[2022-05-28] MEDS: MELATONIN 5 MG TABLETS PO SCH (22:34)
[2022-05-28] MEDS: THIAMINE HCL 100 MG TABLET (FP) PO SCH (22:35)
[2022-05-29] MEDS: hydrOXYzine PAMOATE 25 MG CAPSULE (FP) PO SCH ×5 (05:27→23:48)
[2022-05-29] MEDS: METHOCARBAMOL 500 MG TABLET PO PRN (05:29)
[2022-05-29] MEDS: BICTEGRAV/EMTRICIT/TENOFOV (BIKTARVY) 50-200-25 MG TABLET PO SCH (07:46)
[2022-05-29] MEDS ORDERED: methaDONE HCL 10 MG TABLET (FOR DETOX USE ONLY) ONE (09:09)
[2022-05-29] MEDS: DOXYCYCLINE HYCLATE 100 MG TABLET PO SCH ×2 (10:16→17:38)
[2022-05-29 14:33] LABS: HEMATOCRIT 43.2 % (32.4-45.2); MCH 27.6 pg (25.7-33.7); MCHC 32.4 g/dl (32.0-36.0); MEAN CELL VOLUME 85.2 fl (80-96); MEAN PLT VOLUME 8.4 fl (7.5-11.1); PLATELET COUNT 190 10^3/uL (134-434); RBC 5.07 M/mm3 (3.60-5.2); RDW 14.5 % (11.6-15.6); WHITE BLOOD COUNT 2.7 K/mm3 (4.0-10.0)
[2022-05-29 14:46] LABS: ALBUMIN 2.9 g/dl (3.4-5.0); CALCIUM 10.8 mg/dL (8.5-10.1)
[2022-05-29 14:47] LABS: BLOOD UREA NITROGEN 19.6 mg/dL (7-18)
[2022-05-29 14:50] LABS: CREATININE 0.9 mg/dL (0.55-1.3)
[2022-05-29 14:51] LABS: BILIRUBIN,TOTAL 0.4 mg/dL (0.2-1); TOT PROT 7.8 g/dl (6.4-8.2)
[2022-05-29] MEDS: MELATONIN 5 MG TABLETS PO SCH (23:48)
[2022-05-29] MEDS: THIAMINE HCL 100 MG TABLET (FP) PO SCH (23:49)
[2022-05-30] MEDS: hydrOXYzine PAMOATE 25 MG CAPSULE (FP) PO SCH ×6 (07:01→22:51)
[2022-05-30] MEDS ORDERED: methaDONE HCL 10 MG TABLET (FOR DETOX USE ONLY) PO ONE (10:00)
[2022-05-30] MEDS: ESCITALOPRAM OXALATE 10 MG TABLET PO SCH (10:19)
[2022-05-30] MEDS: METHOCARBAMOL 500 MG TABLET PO PRN (10:19)
[2022-05-30] MEDS: DOXYCYCLINE HYCLATE 100 MG TABLET PO SCH ×2 (10:19→18:17)
[2022-05-30] MEDS: BICTEGRAV/EMTRICIT/TENOFOV (BIKTARVY) 50-200-25 MG TABLET PO SCH (10:19)
[2022-05-30] MEDS: LIDOCAINE 5% TOPICAL PATCH TP SCH (10:55)
[2022-05-30] MEDS: MELATONIN 5 MG TABLETS PO SCH (22:50)
[2022-05-30] MEDS: LIDOCAINE PATCH REMOVAL MC SCH (22:50)
[2022-05-30] MEDS: THIAMINE HCL 100 MG TABLET (FP) PO SCH (22:50)
[2022-05-31] MEDS: hydrOXYzine PAMOATE 25 MG CAPSULE (FP) PO SCH ×5 (06:48→22:54)
[2022-05-31] MEDS: BICTEGRAV/EMTRICIT/TENOFOV (BIKTARVY) 50-200-25 MG TABLET PO SCH (08:14)
[2022-05-31] MEDS ORDERED: methaDONE HCL 10 MG TABLET (FOR DETOX USE ONLY) ONE (09:06)
[2022-05-31] MEDS: LIDOCAINE 5% TOPICAL PATCH TP SCH (10:29)
[2022-05-31] MEDS: ESCITALOPRAM OXALATE 10 MG TABLET PO SCH (10:29)
[2022-05-31] MEDS: DOXYCYCLINE HYCLATE 100 MG TABLET PO SCH ×2 (10:29→18:39)
[2022-05-31] MEDS: LIDOCAINE PATCH REMOVAL MC SCH (22:54)
[2022-05-31] MEDS: MELATONIN 5 MG TABLETS PO SCH (22:54)
[2022-05-31] MEDS: THIAMINE HCL 100 MG TABLET (FP) PO SCH (22:54)
[2022-06-01] MEDS: hydrOXYzine PAMOATE 25 MG CAPSULE (FP) PO SCH ×5 (06:04→23:21)
[2022-06-01] MEDS ORDERED: methaDONE HCL 10 MG TABLET (FOR DETOX USE ONLY) PO ONE (10:00)
[2022-06-01] MEDS ORDERED: ONDANSETRON HCL 4 MG/5 ML BULK BOTTLE PO ONE (10:20)
[2022-06-01] MEDS ORDERED: amLODIPine BESYLATE 2.5 MG TABLET (FP) PO SCH (10:30)
[2022-06-01] MEDS: DOXYCYCLINE HYCLATE 100 MG TABLET PO SCH ×2 (11:13→22:36)
[2022-06-01] MEDS: BICTEGRAV/EMTRICIT/TENOFOV (BIKTARVY) 50-200-25 MG TABLET PO SCH (11:13)
[2022-06-01] MEDS: ESCITALOPRAM OXALATE 10 MG TABLET PO SCH (11:13)
[2022-06-01] MEDS: LIDOCAINE 5% TOPICAL PATCH TP SCH (11:15)
[2022-06-01] MEDS: DOCUSATE SODIUM 100 MG CAPSULE (FP) PO SCH ×2 (14:27→22:36)
[2022-06-01] MEDS: THIAMINE HCL 100 MG TABLET (FP) PO SCH (22:37)
[2022-06-01] MEDS: LIDOCAINE PATCH REMOVAL MC SCH (22:37)
[2022-06-01] MEDS: MELATONIN 5 MG TABLETS PO SCH (22:37)
[2022-06-02] MEDS: DOCUSATE SODIUM 100 MG CAPSULE (FP) PO SCH (06:42)
[2022-06-02] MEDS: hydrOXYzine PAMOATE 25 MG CAPSULE (FP) PO SCH (06:42)
[2022-06-02] MEDS: BICTEGRAV/EMTRICIT/TENOFOV (BIKTARVY) 50-200-25 MG TABLET PO SCH (07:41)
[2022-06-02] MEDS ORDERED: amLODIPine BESYLATE 5 MG TABLET (FP) PO SCH (10:30)
[2022-06-02] MEDS: DOXYCYCLINE HYCLATE 100 MG TABLET PO SCH (10:55)
[2022-06-02] MEDS: LIDOCAINE 5% TOPICAL PATCH TP SCH (10:55)
[2022-06-02] MEDS: ESCITALOPRAM OXALATE 10 MG TABLET PO SCH (10:56)
[2022-06-02 11:11] VITALS: BP 126/75; PULSE 56; TEMP 97.5
== END 2022-06-02 11:10 | disposition home or self-care (01) | DRG 896 ==
LOC: YASAS 13:17 → Y6N 15:19
PROVIDERS: ADMIT Allergy & Immunology; ATTEND Surgery
PROC: HZ2ZZZZ Detoxification Services for Substance Abuse Treatment (ICD-10-PCS; principal; 2022-05-28)
DX: F11.23 Opioid dependence with withdrawal (principal); E43 Unspecified severe protein-calorie malnutrition; F14.20 Cocaine dependence, uncomplicated; Z68.1 Body mass index [BMI] 19.9 or less, adult; F10.230 Alcohol dependence with withdrawal, uncomplicated; F17.210 Nicotine dependence, cigarettes, uncomplicated; F34.1 Dysthymic disorder; Z21 Asymptomatic human immunodeficiency virus [HIV] infection status; D72.819 Decreased white blood cell count, unspecified; I10 Essential (primary) hypertension; K59.01 Slow transit constipation; B18.2 Chronic viral hepatitis C; R63.4 Abnormal weight loss; Z99.89 Dependence on other enabling machines and devices; Z88.2 Allergy status to sulfonamides
CPT/HCPCS: 36415; 80053; 82962; 85027; 86780; C9803-CS; J0735; Q0162; U0003; U0005